=== PATIENT | male | born 1960 | race American Indian/Alaskan Native ===

== ENCOUNTER 2018-03-08 07:58 | Inpatient (IN) | payer OTHER ==
[2018-03-08] MEDS ORDERED: Sodium Chloride 0.9% 500 ML IV STA (08:20)
--- NOTE | 2018-03-08 08:24 | ED PDOC ---
HPI: SOB/CHF/COPD Time Seen by Provider: 03/08/18 08:09 Chief Complaint (Provider): Dyspnea History Per: Patient History/Exam Limitations: no limitations Onset/Duration Of Symptoms: Days (3 weeks) Current Symptoms Are (Timing): Still Present Additional Complaint(s): Pt. with dyspnea ongoing for 3 weeks. No chest pain, leg pain, palpitations, weakness, headaches, dizziness, abd pain, nausea, vomit, numbness, tingles, long distance travel, hormone use. No medical issues. Past Medical History Reviewed: Nursing Documentation, Vital Signs Vital Signs: Last Vital Signs Temp 98.0 F 03/08/18 08:08 Pulse 135 H 03/08/18 08:08 Resp 21 03/08/18 08:08 BP 129/94 H 03/08/18 08:08 Pulse Ox 96 03/08/18 08:08 - Medical History PMH: No Chronic Diseases - Surgical History Surgical History: No Surg Hx - Family History Family History: States: Unknown Family Hx - Social History Alcohol: None Drugs: Denies - Allergies Allergies/Adverse Reactions: Allergies Allergy/AdvReac Type Severity Reaction Status Date / Time No Known Allergies Allergy Verified 03/08/18 08:19 Review of Systems ROS Statement: Except As Marked, All Systems Reviewed And Found Negative Respiratory: Positive for: Shortness of Breath Physical Exam - Reviewed Nursing Documentation Reviewed: Yes Vital Signs Reviewed: Yes - Physical Exam Appears: Positive for: Uncomfortable Head Exam: Positive for: ATRAUMATIC, NORMAL INSPECTION, NORMOCEPHALIC Skin: Positive for: Normal Color, Warm, DRY Eye Exam: Positive for: EOMI, Normal appearance, PERRL ENT: Positive for: Normal ENT Inspection Neck: Positive for: Normal, Painless ROM Cardiovascular/Chest: Positive for: Regular Rate, Rhythm Respiratory: Positive for: CNT, Normal Breath Sounds Gastrointestinal/Abdominal: Positive for: Normal Exam, Soft. Negative for: Tenderness Back: Positive for: Normal Inspection. Negative for: L CVA Tenderness, R CVA Tenderness Extremity: Positive for: Normal ROM. 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 Negative for: Motor/Sensory Deficits - Laboratory Results Result Diagrams: 03/08/18 08:43 03/08/18 08:43 Interpretation Of Abn Labs: probnp 1600 - ECG ECG: Positive for: Interpreted By Me, Viewed By Me ECG Rhythm: Positive for: Atrial Fibrillation (159) O2 Sat by Pulse Oximetry: 96 Pulse Ox Interpretation: Normal - Radiology X-Ray: Read By Radiologist X-Ray Interpretation: Cardiomegaly - Progress ED Course And Treament: 857: Stable. HR not reduced by 10mg cardizem. Will give 15mg considering pt. weight. 908: Pt. HR came down to 140. Will put on a cardizem drip. 920: Spoke with Dr. Morales who wants to continue drip and add metoprolol 5mg IV push x1 if needed. 1022: Stable. AAOx3. will hold ASA as will be giving pt. lovenox. Has mild chf, will be getting lasix. 1031: Spoke with Dr. Hale who will admit. Spoke with Dr. Saeed who will admit ICU. Continue current drip. - Critical Care Total Time (In Min): 30 Documented Critical Care: Time excludes all time spent performint seperately billable procedures Disposition - Clinical Impression Clinical Impression: CHF (congestive heart failure), New onset a-fib - Patient ED Disposition Is Patient to be Admitted: Yes Counseled Patient/Family Regarding: Studies Performed, Diagnosis - Disposition Disposition Time: 10:35 Condition: FAIR - Pt Status Changed To: Hospital Disposition Of: Inpatient - Admit Certification Admit to Inpatient:: After my assessment, the patient will require hospitalization for at least two midnights. This is because of the severity of symptoms shown, intensity of services needed, and/or the medical risk in this patient being treated as an outpatient. - POA Present On Arrival: None
[2018-03-08 08:53] LABS: BASO # 0.1 K/uL (0.0-0.2); BASO % 0.7 % (0.0-2.0); EOS # 0.1 K/uL (0.0-0.7); EOS % 1.2 % (0.0-4.0); HEMOGLOBIN 14.1 g/dL (12.0-18.0); LYMPH # 2.2 K/uL (1.0-4.3); LYMPH % 28.1 % (20.0-40.0); MEAN CELL VOLUME 81.5 fl (80.0-94.0); MEAN CORPUSCULAR HEMOGLOBIN 26.7 pg (27.0-31.0); MEAN CORPUSCULAR HGB CONC 32.7 g/dL (33.0-37.0); MEAN PLATELET VOLUME 9.6 fl (7.2-11.7); MONO % 12.4 % (0.0-10.0); NEUT # 4.6 K/uL (1.8-7.0); NEUT % 57.6 % (50.0-75.0); NRBC % 0.1 % (0.0-0.0); RBC 5.29 Mil/uL (4.40-5.90); RED CELL DISTRIBUTION WIDTH 15.2 % (11.5-14.5)
--- NOTE | 2018-03-08 08:55 | RAD ---
Date of service: 03/08/2018 HISTORY: dyspnea COMPARISON: Portable chest 07/07/2011. FINDINGS: LUNGS: Subtle patchy infiltrate may be developing in the right perihilar region with remaining lung rain otherwise clear bilaterally. PLEURA: No significant pleural effusion identified, no pneumothorax apparent. CARDIOVASCULAR: Prominent cardiac silhouette. Potentially technically magnified. No pulmonary vascular congestion. OSSEOUS STRUCTURES: No significant abnormalities. VISUALIZED UPPER ABDOMEN: Normal. OTHER FINDINGS: None. IMPRESSION: Borderline patchy airspace disease developing in the right perihilar region. Clinically correlate further. None otherwise evident. Prominent cardiac silhouette without pulmonary vascular congestion.
[2018-03-08 09:02] LABS: INR 1.1; PROTHROMBIN TIME 12.4 Seconds (9.8-13.1)
[2018-03-08 09:05] LABS: PARTIAL THROMBOPLASTIN TIME 32.2 Seconds (25.6-37.1)
--- NOTE | 2018-03-08 09:07 | CARD ---
APPROVED REPORT Date of service: 03/08/2018 EKG Measurement Heart [id number] <Conclusion> Atrial fibrillation with rapid ventricular response Rightward axis Abnormal ECG
[2018-03-08 09:08] LABS: ALB/GLOB RATIO 1.2 (1.0-2.1); ALBUMIN 3.7 g/dL (3.5-5.0); ALT/SGPT 117 U/L (21-72); AST/SGOT 83 U/L (17-59); BLOOD UREA NITROGEN 17 mg/dl (9-20); GFR NON-AFRICAN AMERICAN > 60
[2018-03-08 09:21] LABS: B-TYPE NATRIURETIC PEPTIDE 1600 pg/ml (0-900)
[2018-03-08] MEDS ORDERED: Enoxaparin 150 mg Syringe SC STA (10:30)
--- NOTE | 2018-03-08 11:44 | CP.PCM.HP ---
History of Present Illness - History of Present Illness History of Present Illness: 59 yo male patient w/o significant PMH presented to the ED c/o dyspnea ongoing for 3 weeks, chest tightness and palpitations meanly at night. He denies any previuos episodes. He states he able to climb up to 3 flight stairs w/o get sob. Otherwise he denies chest pain, leg pain, edema, cough, weakness, headaches, dizziness, abd pain, nausea, vomit, numbness, tingles, recent travels or sick contacts. No medical issues. PMH: denies PSH: appendectomy, IH repair FMH: father from [place], sister <50yo also from [place] Meds: occasional Tylenol for headaches NKDA SH: quit smoke 7 yrs ago, denies etoh or ilicit drugs Present on Admission - Present on Admission Any Indicators Present on Admission: No Review of Systems - Review of Systems All systems: reviewed and no additional remarkable complaints except (HPI) Past Patient History - Past Social History Alcohol: None Drugs: Denies - PSYCHIATRIC Hx Substance Use: No - SURGICAL HISTORY Hx Surgeries: Yes Hx Appendectomy: Yes Other/Comment: HERNIA REPAIR - ANESTHESIA Hx Anesthesia: Yes Hx Anesthesia Reactions: No Hx Malignant Hyperthermia: No Meds Allergies/Adverse Reactions: Allergies Allergy/AdvReac Type Severity Reaction Status Date / Time No Known Allergies Allergy Verified 03/08/18 08:19 Physical Exam - Constitutional Appears: No Acute Distress - Head Exam Head Exam: NORMAL INSPECTION - Eye Exam Eye Exam: EOMI, PERRL - Respiratory Exam Respiratory Exam: Decreased Breath Sounds, Clear to Auscultation Bilateral. absent: Rhonchi, Wheezes - Cardiovascular Exam Cardiovascular Exam: Tachycardia, Irregular Rhythm - GI/Abdominal Exam GI & Abdominal Exam: Soft. absent: Distended, Tenderness - Extremities Exam Extremities exam: Negative for: calf tenderness - Neurological Exam Neurological exam: Alert, CN II-XII Intact, Oriented x3 - Skin Skin Exam: Dry, Warm Results - Vital Signs Recent Vital Signs: Last Vital Signs Temp 98.0 F 03/08/18 08:08 Pulse 130 H 03/08/18 11:14 Resp 18 03/08/18 11:14 BP 135/87 03/08/18 11:14 Pulse Ox 99 03/08/18 11:14 - Labs Result Diagrams: 03/09/18 04:20 03/09/18 04:20 Labs: Laboratory Results - last 24 hr 03/08/18 03/08/18 03/08/18 08:43 08:43 08:43 WBC 8.0 RBC 5.29 Hgb 14.1 Hct 43.1 MCV 81.5 MCH 26.7 L MCHC 32.7 L RDW 15.2 H Plt Count 213 MPV 9.6 Neut % (Auto) 57.6 Lymph % (Auto) 28.1 [place] % (Auto) 12.4 H Eos % (Auto) 1.2 Baso % (Auto) 0.7 Neut # (Auto) 4.6 Lymph # (Auto) 2.2 [place] # (Auto) 1.0 H Eos # (Auto) 0.1 Baso # (Auto) 0.1 PT 12.4 INR 1.1 APTT 32.2 Sodium 139 Potassium 4.2 Chloride 111 H Carbon Dioxide 22 Anion Gap 10 BUN 17 Creatinine 1.2 Est GFR ( Amer) > 60 Est GFR (Non-Af Amer) > 60 Random Glucose 101 Calcium 9.0 Magnesium 2.1 Total Bilirubin 1.0 AST 83 H ALT 117 H Alkaline Phosphatase 60 Troponin I 0.0210 NT-Pro-B Natriuret Pep 1600 H Total Protein 6.8 Albumin 3.7 Globulin 3.2 Albumin/Globulin Ratio 1.2 TSH 3rd Generation 1.54 Assessment & Plan - Assessment and Plan (Free Text) Assessment: 59 yo male patient w/o significant PMH admitted for AFib of new onset with RVR for further eval and treatment Plan: - denies chest pain - EKG: afib with RVR - CXR: no active lung disease - trending troponins negatives - Echo official report pending - on cardiazem drip, stopped due to BP drop - Cardiology consulted, recommendations appreciated - Plan for Cath and ANDRE tomorrow with Dr. Morales at [facility]. - Eliquis held and NPO after midnight. - continue rest of management as ordered Case seen and examined with Dr Hale.
[2018-03-08] MEDS ORDERED: Influenza Vaccine (5 YR UP)/PF 60 MCG/0.5 ML SYR IM ONE (13:16)
[2018-03-08] MEDS ORDERED: Pneumococcal 23-Valent Vaccine IM ONE (13:16)
[2018-03-08] MEDS ORDERED: Magnesium Sulfate 2 gm/50 ml 2 GM/50 ML BAG IVPB ONE (16:18)
--- NOTE | 2018-03-08 16:18 | CP.PCM.CON ---
History of Present Illness - History of Present Illness History of Present Illness: 58 y/o male presents with CC of Orthopnea x 3 weeks. Pt also admits to mild SAMAYOA. No cp, palp, Lh, dizziness, syncope. Pt states that he has mild fatigue. upon presentation he is noted to have new onset rapid afib. Denies any etoh or drug use, denies recent travel, le pain, or hx of cardiac disease. Pt admits to KOBY for many years, not using cpap. There is a family hx of arrythmias (mother and brother). exact diagnosis is unknown. Review of Systems - Constitutional Constitutional: As Per HPI, Fatigue. absent: Anorexia, Chills, Daytime Sleepiness, Excessive Sweating, Fever, Frequent Falls, Headache, Increased Appetite, Lethargy, Malaise, Night Sweats, Snoring, Sleep Apnea, Weight Gain, Weight Loss, Weakness, Other - EENT Eyes: As Per HPI. absent: Blind Spots, Blurred Vision, Change in Vision, Decreased Night Vision, Diplopia, Discharge, Dry Eye, Exophthalmos, Floaters, Irritation, Itchy Eyes, Loss of Peripheral Vision, Pain, Photophobia, Requires Corrective Lenses, Sees Flashes, Spots in Vision, Tunnel Vision, Other Visual Disturbances, Loss of Vision, Other Ears: As Per HPI. absent: Decreased Hearing, Ear Discharge, Ear Pain, Tinnitus, Abnormal Hearing, Disequilibrium, Dizziness, Other Nose/Mouth/Throat: As Per HPI. absent: Epistaxis, Nasal Congestion, Nasal Discharge, Nasal Obstruction, Nasal Trauma, Nose Pain, Post Nasal Drip, Sinus Pain, Sinus Pressure, Bleeding Gums, Change in Voice, Dental Pain, Dry Mouth, Dysphagia, Halitosis, Hoarsness, Lip Swelling, Mouth Lesions, Mouth Pain, Odynophagia, Sore Throat, Throat Swelling, Tongue Swelling, Facial Pain, Neck Pain, Neck Mass, Other - Cardiovascular Cardiovascular: As Per HPI, Edema, Irregular Heart Rhythm. absent: Acrocyanosis, Chest Pain, Chest Pain at Rest, Chest Pain with Activity, Claudication, Diaphoresis, Dyspnea, Dyspnea on Exertion, Pain Radiating to Arm/Neck/Jaw, Leg Edema, Leg Ulcers, Lightheadedness, Orthopnea, Palpitations, Paroxysmal Nocturnal Dyspnea, Pedal Edema, Radiating Pain, Rapid Heart Rate, Slow Heart Rate, Syncope, Other - Respiratory Respiratory: As Per HPI. absent: Cough, Dyspnea, Hemoptysis, Dyspnea on Exertion, Wheezing, Snoring, Stridor, Pain on Inspiration, Chest Congestion, Excessive Mucous Production, Change in Mucous Color, Pain with Coughing, Other - Gastrointestinal Gastrointestinal: As Per HPI. absent: Abdominal Pain, Belching, Bloating, Change in Bowel Habits, Change in Stool Character, Coffee Ground Emesis, Con stipation, Cramping, Diarrhea, Dyspepsia, Dysphagia, Early Satiety, Excessive Flatus, Fecal Incontinence, Heartburn, Hematemesis, Hematochezia, Loose Stools, Melena, Nausea, Odynophagia, Temesmus, Vomiting, Other - Genitourinary Genitourinary: As Per HPI. absent: Change in Urinary Stream, Difficulty Urinating, Dysuria, Flank Pain, Hematuria, Pyuria, Nocturia, Urinary Incontinence, Urinary Frequency, Urinary Hesitance, Urinary Urgency, Voiding Freq/Small Amts, Freq UTI, Hx Renal/Bladder Calculi, Hx /Renal Surgery, Bladder Distension, Other - Reproductive: Male Reproductive:Male: As Per HPI - Musculoskeletal Musculoskeletal: As Per HPI. absent: Abnormal Gait, Arthralgias, Atrophy, Back Pain, Deformity, Joint Swelling, Limited Range of Motion, Loss of Height, Muscle Cramps, Muscle Weakness, Myalgias, Neck Pain, Numbness, Radiating Pain into Limb, Stiffness, Tingling, Other - Integumentary Integumentary: As Per HPI. absent: Acne, Alopecia, Bleeding Lesions, Change in Hair, Change in Nails, Change in Pigmentation, Changing Lesions, Dry Skin, Erythema, Furuncle, Hirsutism, Lesions, New Lesions, Non-Healing Lesions, Photosensitivity, Pruritus, Rash, Skin Pain, Skin Ulcer, Sores, Striae, Swelling, Unusual Bruising, Wounds, Jaundice, Other - Neurological Neurological: As Per HPI. absent: Abnormal Gait, Abnormal Hearing, Abnormal Movements, Abnormal Speech, Behavioral Changes, Burning Sensations, Confusion, Convulsions, Disequilibrium, Dizziness, Numbness, Focal Weakness, Frequent Fal ls, Headaches, Lack of Coordination, Loss of Vision, Memory Loss, Paresthesias, Radicular Pain, Restless Legs, Sensory Deficit, Syncope, Tingling, Tremor, Vertigo, Weakness, Other Visual Disturbances, Other - Psychiatric Psychiatric: As Per HPI. absent: Abnormal Sleep Pattern, Anhedonia, Anxiety, Auditory Hallucinations, Behavioral Changes, Change in Appetite, Change in Libido, Confusion, Depression, Difficulty Concentrating, Hallucinations, Homicidal Ideation, Hopelessness, Irritability, Memory Loss, Mood Swings, Panic Attacks, Paranoia, Suicidal Ideation, Visual Hallucinations, Tactile Hallucinations, Other - Endocrine Endocrine: As Per HPI. absent: Change in Body Appearance, Change in Libido, Cold Intolorance, Deepening of Voice, Excessive Sweating, Fatigue, Flushing, Heat Intolorance, Increase in Ring/Shoe/Hat Size, Palpitations, Polydipsia, Polyphagia, Polyuria, Other - Hematologic/Lymphatic Hematologic: As Per HPI. absent: Easy Bleeding, Easy Bruising, Lymphadenopathy, Other Past Patient History - Past Medical History & Family History Past Medical History?: No - Past Social History Smoking Status: Former Smoker - CARDIAC Hx Cardiac Disorders: No Hx Angina: No Hx Atrial Fibrillation: Yes (new onset) Hx Cardia Arrhythmia: No Hx Circulatory Problems: No Hx Congestive Heart Failure: No Hx Heart Attack: No Hx Heart Murmur: No Hx Heart Transplant: No Hx Hypercholesterolemia: Yes (corrected) Hx Hypertension: No Hx Hypotension: No Hx Internal Defibrillator: No Hx Mitral Valve Prolapse: No Hx Pacemaker: No Hx Peripheral Edema: No Hx Peripheral Vascular Disease: No - PULMONARY Hx Respiratory Disorders: No Hx Asthma: No Hx Bronchitis: No Hx Chronic Obstructive Pulmonary Disease (COPD): No Hx Emphysema: No Hx Lung Cancer: No Hx Pneumonia: No Hx Pulmonary Edema: No Hx Pulmonary Embolism: No Hx Respiratory Aspiration: No Hx Respiratory Tract Infection: No Hx Sleep Apnea: No Hx Tuberculosis: No - NEUROLOGICAL Hx Neurological Disorder: No Hx Alzheimer's Disease: No HX Cerebrovascular Accident: No Hx Dementia: No Hx Dizziness: No Hx Meningitis: No Hx Migraine: No Hx Multiple Sclerosis: No Hx Paralysis: No Hx Parkinson's Disease: No Hx Seizures: No Hx Syncope: No Hx Transient Ischemic Attacks (TIA): No Hx Vertigo: No - HEENT Hx HEENT Problems: Yes Hx Blind: No Hx Cataracts: No Hx Deafness: No Hx Difficulty Chewing: No Hx Epistaxis: No Hx Glaucoma: No Hx Macular Degeneration: No Hx Sinusitis: No - RENAL Hx Chronic Kidney Disease: No Hx Dialysis: No Hx Kidney Stones: No Hx Neurogenic Bladder: No Hx Pyelonephritis: No Hx Renal (Kidney) Cancer: No Hx Renal Failure: No - ENDOCRINE/METABOLIC Hx Endocrine Disorders: No Hx Adrenal Cancer: No Hx Diabetes Insipidus: No Hx Diabetes Mellitus Type 1: No Hx Diabetes Mellitus Type 2: No Hx Hyperthyroidism: No Hx Hypothyroidism: No - HEMATOLOGICAL/ONCOLOGICAL Hx Blood Disorders: No Hx AIDS: No Hx Anemia: No Hx Blood Transfusions: No Hx Blood Transfusion Reaction: No Hx Bruising: No Hx Cancer: No Hx Chemotherapy: No Hx Cirrhosis: No Hx Gum Bleeding: No Hx Hemophilia: No Hx Hepatitis A: No Hx Hepatitis B: No Hx Hepatitis C: No Hx Human Immunodeficiency Virus (HIV): No Hx Leukemia: No Hx Metastesis: No Hx Shingles: No Hx Sickle Cell Disease: No Hx Unexplained Bleeding: No Hx von Willebrand's Disease: No - INTEGUMENTARY Hx Dermatological Problems: No Hx Basil Cell: No Hx Kramer: No Hx Cellulitis: No Hx Eczema: No Hx Melanoma: No Hx Psoriasis: No Hx Squamous Cell: No - MUSCULOSKELETAL/RHEUMATOLOGICAL Hx Musculoskeletal Disorders: Yes Hx Arthritis: No Hx Back Pain: No Hx Degenerative Joint Disease: No Hx Falls: No Hx Fractures: No Hx Gout: No Hx Herniated Disk: No Hx Myasthenia Gravis: No Hx Osteoarthritis: No Hx Osteomyelitis: No Hx Osteoporosis: No Hx Rhabdomyolysis: No Hx Rheumatoid Arthritis: No Hx Spinal Stenosis: No Hx Unsteady Gait: No Other/Comment: broke all fingers - GASTROINTESTINAL Hx Gastrointestinal Disorders: No Hx Bowel Surgery: No Hx Clostridium Difficile: No Hx Colitis: No Hx Colostomy: No Hx Constipation: No Hx Crohn's Disease: No Hx Diarrhea: No Hx Diverticulitis: No Hx Esophageal Varices: No Hx Fatty Liver Disease: No Hx Gall Bladder Disease: No Hx Gastritis: No Hx Gastroesophageal Reflux: No Hx Hemorrhoids: No Hx Ileostomy: No Hx Irritable Bowel: No Hx Liver Failure: No Hx Nausea: No Hx Pancreatitis: No HX Swallowing Problems: No Hx Ulcer: No Hx Vomiting: No - GENITOURINARY/GYNECOLOGICAL Hx Genitourinary Disorders: No Hx Bladder Cancer: No Hx Bladder Stone: No Hx Hematuria: No Hx Incontinence: No Hx Prostate Cancer: No Hx Prostate Problems: No Hx Reproductive Disorders: No Hx Sexually Transmitted Disorders: No Hx Urinary Tract Infection: No - PSYCHIATRIC Hx Psychophysiologic Disorder: No Hx Anxiety: No Hx Bipolar Disorder: No Hx Depression: No Hx Emotional Abuse: No Hx Hallucinations: No Hx Panic Symptoms: No Hx Paranoia: No Hx Post Traumatic Stress Disorder: No Hx Psychosis: No Hx Physical Abuse: No Hx Schizophrenia: No Hx Sexual Abuse: No Hx Substance Use: No Other/Comment: former smoker - SURGICAL HISTORY Hx Surgeries: Yes Hx Abdominal Aortic Aneurysm Repair: No Hx Amputation: No Hx Angiogram: No Hx Angioplasty: No Hx Appendectomy: Yes Hx Arteriovenous Shunt: No Hx Arthroscopy: No Hx Bile Duct Stent: No Hx Breast Biopsy: No Hx Cataract Extraction: No Hx Cardiac Catheterization: No Hx Carotid Endarterectomy: No Hx Section: No Hx Cholecystectomy: No Hx Coronary Artery Bypass Graft: No Hx Coronary Stent: No Hx Dilation and Curettage: No Hx Eye Surgery: No Hx Femoral-Popliteal Bypass Graft: No Hx Gastric Bypass Surgery: No Hx Herniorrhaphy: Yes Hx Hysterectomy: No Hx Joint Replacement: No Hx Kidney Transplant: No Hx Liver Transplant: No Hx Mastectomy: No Hx Musculoskeletal Surgery: No Hx Open Heart Surgery: No Hx Open Reduction Internal Fixation: No Hx Orthopedic Surgery: No Hx Parathyroidectomy: No Hx Penile Implant: No Hx Pulmonary Surgery: No Hx Splenectomy: No Hx Thyroidectomy: No Hx Tonsillectomy: No Hx Tubal Ligation: No Hx Valve Replacement: No Hx Vascular Surgery: No Hx Vascular Access Device: No Other/Comment: HERNIA REPAIR, gastric ban - ANESTHESIA Hx Anesthesia: Yes Hx Anesthesia Reactions: No Hx Malignant Hyperthermia: No Has any member of the family had a problem w/ anesthesia?: No Meds Allergies/Adverse Reactions: Allergies Allergy/AdvReac Type Severity Reaction Status Date / Time No Known Allergies Allergy Verified 03/08/18 08:19 - Medications Medications: Current Medications Diltiazem HCl 125 mg/ Sodium (Chloride) 125 mls @ 10 mls/hr IV .[id number]; Protocol Stop: 03/08/18 21:35 Last Admin: 03/08/18 13:00 Dose: 12.5 mg/hr, 12.5 mls/hr Physical Exam - Constitutional Appears: Non-toxic - Head Exam Head Exam: ATRAUMATIC, NORMAL INSPECTION, NORMOCEPHALIC - Eye Exam Eye Exam: EOMI, Normal appearance, PERRL. absent: Conjunctival injection, Nystagmus, Periorbital swelling, Periorbital tenderness, Scleral icterus Pupil Exam: NORMAL ACCOMODATION, PERRL. absent: Fixed, Irregular, Miosis, Mydriatic, Unequal - ENT Exam ENT Exam: Mucous Membranes Moist, Normal Exam. absent: Mucous Membranes Dry, Normal External Ear Exam, Normal Oropharynx, TM's Normal Bilaterally - Neck Exam Neck exam: Positive for: Normal Inspection. Negative for: Full Rom, Lymphadenopathy, Meningismus, Tenderness, Thyromegaly - Respiratory Exam Respiratory Exam: Clear to Auscultation Bilateral, NORMAL BREATHING PATTERN. absent: Accessory Muscle Use, Chest Wall Tenderness, Decreased Breath Sounds, Prolonged Expiratory Phase, Rales, Rhonchi, Wheezes, Respiratory Distress, Stridor - Cardiovascular Exam Cardiovascular Exam: Tachycardia, Irregular Rhythm, +S1, +S2, Systolic Murmur. absent: Bradycardia, Clicks, Diastolic murmur, Gallop, REGULAR RHYTHM, JVD, RRR, Rubs, +S4 - GI/Abdominal Exam GI & Abdominal Exam: Normal Bowel Sounds, Soft. absent: Bruit, Diminished Bowel Sounds, Distended, Firm, Guarding, Hernia, Hyperactive Bowel Sounds, Hypoactive Bowel Sounds, Mass, Organomegaly, Pulsatile Mass, Rebound, Rigid, Tenderness - Extremities Exam Additional comments: 2+ edema - Back Exam Back exam: NORMAL INSPECTION. absent: CVA tenderness (L), CVA tenderness (R), FULL ROM, muscle spasm, paraspinal tenderness, rash noted, tenderness, vertebral tenderness - Neurological Exam Neurological exam: Alert, CN II-XII Intact, Oriented x3, Reflexes Normal - Psychiatric Exam Psychiatric exam: Normal Affect, Normal Mood - Skin Skin Exam: Dry, Intact, Normal Color, Warm Results - Vital Signs Recent Vital Signs: Last Vital Signs Temp 98.8 F 03/08/18 16:00 Pulse 132 H 03/08/18 16:00 Resp 23 03/08/18 16:00 BP 198/47 H 03/08/18 16:00 Pulse Ox 100 03/08/18 16:00 - Labs Result Diagrams: 03/09/18 04:20 03/09/18 04:20 Labs: Laboratory Results - last 24 hr 03/08/18 03/08/18 03/08/18 08:43 08:43 08:43 WBC 8.0 RBC 5.29 Hgb 14.1 Hct 43.1 MCV 81.5 MCH 26.7 L MCHC 32.7 L RDW 15.2 H Plt Count 213 MPV 9.6 Neut % (Auto) 57.6 Lymph % (Auto) 28.1 [place] % (Auto) 12.4 H Eos % (Auto) 1.2 Baso % (Auto) 0.7 Neut # (Auto) 4.6 Lymph # (Auto) 2.2 [place] # (Auto) 1.0 H Eos # (Auto) 0.1 Baso # (Auto) 0.1 PT 12.4 INR 1.1 APTT 32.2 Sodium 139 Potassium 4.2 Chloride 111 H Carbon Dioxide 22 Anion Gap 10 BUN 17 Creatinine 1.2 Est GFR ( Amer) > 60 Est GFR (Non-Af Amer) > 60 Random Glucose 101 Calcium 9.0 Magnesium 2.1 Total Bilirubin 1.0 AST 83 H ALT 117 H Alkaline Phosphatase 60 Troponin I 0.0210 NT-Pro-B Natriuret Pep 1600 H Total Protein 6.8 Albumin 3.7 Globulin 3.2 Albumin/Globulin Ratio 1.2 TSH 3rd Generation 1.54 03/08/18 15:35 WBC RBC Hgb Hct MCV MCH MCHC RDW Plt Count MPV Neut % (Auto) Lymph % (Auto) [place] % (Auto) Eos % (Auto) Baso % (Auto) Neut # (Auto) Lymph # (Auto) [place] # (Auto) Eos # (Auto) Baso # (Auto) PT INR APTT Sodium Potassium Chloride Carbon Dioxide Anion Gap BUN Creatinine Est GFR ( Amer) Est GFR (Non-Af Amer) Random Glucose Calcium Magnesium Total Bilirubin AST ALT Alkaline Phosphatase Troponin I 0.0180 NT-Pro-B Natriuret Pep Total Protein Albumin Globulin Albumin/Globulin Ratio TSH 3rd Generation Assessment & Plan (1) CHF (congestive heart failure) Status: Acute (2) New onset a-fib Status: Acute - Assessment and Plan (Free Text) Plan: anticoagulation changed to eliquis cardizem iv and metoprolol for rate control echo ordered continue diuretics and icu monitoring
[2018-03-08] MEDS ORDERED: Metoprolol 1 mg/ml Inj IVP SCH (17:07)
--- NOTE | 2018-03-08 17:18 | CP.CCUPN ---
Addendum entered and electronically signed by Emelina Flood MD 03/08/18 17:50: Discussed case with Student Dean, Dr. Morales. Will start pt on Cardizem 20mg/hr and Lopressor 5mg q6 in light of persistent tachycardia and elevated blood pressures. Will also start diuresing patient w/ Lasix IV 40mg BID daily. Eliquis for anticoagulation. Original Note: <Emelina Flood - Last Filed: 03/08/18 17:50> CCU Subjective - Physician Review Subjective (Free Text): Pt is a 58 y/o male presenting with 3 wk history of worsening SOB found on presentation to be in Atrial Fibrillation with RVR and Acute CHF exacerbation. ED events reviewed: -HR 180 on presentation -EKG Afibb w/ RVR -Troponin x1 negative -ProBMP 1600 -S/P Cardizem 10mg and 15mg -Cardizem drip started -S/P Lasix 40mg IV Overnight events: -Tachycardic ranging from 130-150 -Cardizem drip titrated to 10mg/hr Seen and examined this morning. Family at the bedside. Denies CP, palpitations, SOB, cough. States he is feeling better. Endorses night time awakenings with acute SOB. 03/08/18 15:08 CCU Objective - Vital Signs / Intake & Output Vital Signs (Last 4 hours): Vital Signs Temp Pulse Resp BP Pulse Ox 03/08/18 16:00 98.8 F 132 H 23 198/47 H 100 03/08/18 15:00 145 H 24 119/81 100 03/08/18 14:00 128 H 23 130/92 H 100 03/08/18 13:17 98.1 F 03/08/18 13:09 145 H 19 159/100 H 99 Intake and Output (Last 8hrs): Intake & Output 03/08/18 03/08/18 03/08/18 06:59 14:59 22:59 Output Total 1880 Balance -1880 Weight 382 lb 4.8 oz Output: Urine 1880 Urine, Voided 980 - Physical Exam Head: Positive for: Atraumatic, Normocephalic Pupils: Positive for: PERRL Conjunctiva: Positive for: Normal Mouth: Positive for: Moist Mucous Membranes Pharnyx: Positive for: Normal Respiratory/Chest: Positive for: Clear to Auscultation. Negative for: Wheezes, Rales, Rhonchi, Tachypneic Cardiovascular: Positive for: Irregular Rhythm, Tachycardic. Negative for: Murmurs Abdomen: Positive for: Normal Bowel Sounds. Negative for: Tenderness, Distention Upper Extremity: Positive for: Capillary Refill < 2s. Negative for: Edema Lower Extremity: Positive for: Capillary Refill < 2 s. Negative for: Edema, CALF TENDERNESS, Teodora's Sign, Temperature Abnormalties Neurological: Positive for: Speech Normal Skin: Positive for: Normal Color Psychiatric: Positive for: Alert, Oriented x 3 - Medications Active Medications: Active Medications Generic Name Dose Route Start Last Admin Trade Name Freq PRN Reason Stop Dose Admin Apixaban 5 mg 03/09/18 09:00 Eliquis PO Q12 SARAI Protocol Furosemide 40 mg 03/08/18 17:00 Lasix IVP BID SARAI Diltiazem HCl 125 mg/ Sodium 125 mls @ 10 mls/hr 03/08/18 09:06 03/08/18 13:00 Chloride IV 03/08/18 21:35 12.5 mg/hr .[id number] ONE 12.5 mls/hr Administration Protocol 10 MG/HR Magnesium Sulfate 2 gm in 50 mls @ 50 mls/hr 03/08/18 16:18 Magnesium Sulfate 2 Gm/50 Ml Water IVPB 03/08/18 17:17 ONCE ONE 2 GM/HR - Patient Studies Lab Studies: Lab Studies 03/08/18 03/08/18 03/08/18 Range/Units 15:35 08:43 08:43 WBC 8.0 (4.8-10.8) K/uL RBC 5.29 (4.40-5.90) Mil/uL Hgb 14.1 (12.0-18.0) g/dL Hct 43.1 (35.0-51.0) % MCV 81.5 (80.0-94.0) fl MCH 26.7 L (27.0-31.0) pg MCHC 32.7 L (33.0-37.0) g/dL RDW 15.2 H (11.5-14.5) % Plt Count 213 (130-400) K/uL MPV 9.6 (7.2-11.7) fl Neut % (Auto) 57.6 (50.0-75.0) % Lymph % (Auto) 28.1 (20.0-40.0) % Gove % (Auto) 12.4 H (0.0-10.0) % Eos % (Auto) 1.2 (0.0-4.0) % Baso % (Auto) 0.7 (0.0-2.0) % Neut # (Auto) 4.6 (1.8-7.0) K/uL Lymph # (Auto) 2.2 (1.0-4.3) K/uL Gove # (Auto) 1.0 H (0.0-0.8) K/uL Eos # (Auto) 0.1 (0.0-0.7) K/uL Baso # (Auto) 0.1 (0.0-0.2) K/uL PT 12.4 (9.8-13.1) Seconds INR 1.1 APTT 32.2 (25.6-37.1) Seconds Sodium (132-148) mmol/l Potassium (3.6-5.0) MMOL/L Chloride (98-107) mmol/L Carbon Dioxide (22-30) mmol/L Anion Gap (10-20) BUN (9-20) mg/dl Creatinine (0.8-1.5) mg/dl Est GFR ( Amer) Est GFR (Non-Af Amer) Random Glucose (75-110) mg/dL Calcium (8.4-10.2) mg/dL Magnesium (1.6-2.3) MG/DL Total Bilirubin (0.2-1.3) mg/dl AST (17-59) U/L ALT (21-72) U/L Alkaline Phosphatase (38-126) U/L Troponin I 0.0180 (0.00-0.120) ng/mL NT-Pro-B Natriuret Pep (0-900) pg/ml Total Protein (6.3-8.2) G/DL Albumin (3.5-5.0) g/dL Globulin (2.2-3.9) gm/dL Albumin/Globulin Ratio (1.0-2.1) TSH 3rd Generation (0.46-4.68) mIU/ML 03/08/18 Range/Units 08:43 WBC (4.8-10.8) K/uL RBC (4.40-5.90) Mil/uL Hgb (12.0-18.0) g/dL Hct (35.0-51.0) % MCV (80.0-94.0) fl MCH (27.0-31.0) pg MCHC (33.0-37.0) g/dL RDW (11.5-14.5) % Plt Count (130-400) K/uL MPV (7.2-11.7) fl Neut % (Auto) (50.0-75.0) % Lymph % (Auto) (20.0-40.0) % Gove % (Auto) (0.0-10.0) % Eos % (Auto) (0.0-4.0) % Baso % (Auto) (0.0-2.0) % Neut # (Auto) (1.8-7.0) K/uL Lymph # (Auto) (1.0-4.3) K/uL Gove # (Auto) (0.0-0.8) K/uL Eos # (Auto) (0.0-0.7) K/uL Baso # (Auto) (0.0-0.2) K/uL PT (9.8-13.1) Seconds INR APTT (25.6-37.1) Seconds Sodium 139 (132-148) mmol/l Potassium 4.2 (3.6-5.0) MMOL/L Chloride 111 H (98-107) mmol/L Carbon Dioxide 22 (22-30) mmol/L Anion Gap 10 (10-20) BUN 17 (9-20) mg/dl Creatinine 1.2 (0.8-1.5) mg/dl Est GFR ( Amer) > 60 Est GFR (Non-Af Amer) > 60 Random Glucose 101 (75-110) mg/dL Calcium 9.0 (8.4-10.2) mg/dL Magnesium 2.1 (1.6-2.3) MG/DL Total Bilirubin 1.0 (0.2-1.3) mg/dl AST 83 H (17-59) U/L ALT 117 H (21-72) U/L Alkaline Phosphatase 60 (38-126) U/L Troponin I 0.0210 (0.00-0.120) ng/mL NT-Pro-B Natriuret Pep 1600 H (0-900) pg/ml Total Protein 6.8 (6.3-8.2) G/DL Albumin 3.7 (3.5-5.0) g/dL Globulin 3.2 (2.2-3.9) gm/dL Albumin/Globulin Ratio 1.2 (1.0-2.1) TSH 3rd Generation 1.54 (0.46-4.68) mIU/ML Laboratory Results - last 24 hr 03/08/18 03/08/18 03/08/18 08:43 08:43 08:43 WBC 8.0 RBC 5.29 Hgb 14.1 Hct 43.1 MCV 81.5 MCH 26.7 L MCHC 32.7 L RDW 15.2 H Plt Count 213 MPV 9.6 Neut % (Auto) 57.6 Lymph % (Auto) 28.1 Gove % (Auto) 12.4 H Eos % (Auto) 1.2 Baso % (Auto) 0.7 Neut # (Auto) 4.6 Lymph # (Auto) 2.2 Gove # (Auto) 1.0 H Eos # (Auto) 0.1 Baso # (Auto) 0.1 PT 12.4 INR 1.1 APTT 32.2 Sodium 139 Potassium 4.2 Chloride 111 H Carbon Dioxide 22 Anion Gap 10 BUN 17 Creatinine 1.2 Est GFR ( Amer) > 60 Est GFR (Non-Af Amer) > 60 Random Glucose 101 Calcium 9.0 Magnesium 2.1 Total Bilirubin 1.0 AST 83 H ALT 117 H Alkaline Phosphatase 60 Troponin I 0.0210 NT-Pro-B Natriuret Pep 1600 H Total Protein 6.8 Albumin 3.7 Globulin 3.2 Albumin/Globulin Ratio 1.2 TSH 3rd Generation 1.54 03/08/18 15:35 WBC RBC Hgb Hct MCV MCH MCHC RDW Plt Count MPV Neut % (Auto) Lymph % (Auto) Gove % (Auto) Eos % (Auto) Baso % (Auto) Neut # (Auto) Lymph # (Auto) Gove # (Auto) Eos # (Auto) Baso # (Auto) PT INR APTT Sodium Potassium Chloride Carbon Dioxide Anion Gap BUN Creatinine Est GFR ( Amer) Est GFR (Non-Af Amer) Random Glucose Calcium Magnesium Total Bilirubin AST ALT Alkaline Phosphatase Troponin I 0.0180 NT-Pro-B Natriuret Pep Total Protein Albumin Globulin Albumin/Globulin Ratio TSH 3rd Generation EKG/Cardiology Studies: Cardiology / EKG Studies 03/08/18 08:20 ELECTROCARDIOGRAM Stat Comment: Mode Of Transportation: Reason For Exam: needed Review of Systems - Constitutional Constitutional: absent: Chills, Sweats - Cardiovascular Cardiovascular: absent: Chest Pain, Diaphoresis, Dyspnea, Edema, Lightheadedness - Respiratory Respiratory: Snoring. absent: Cough, Hemoptysis, Chest Congestion, Excessive Mucous Production - Gastrointestinal Gastrointestinal: absent: Abdominal Pain, Diarrhea, Vomiting - Genitourinary Genitourinary: absent: Dysuria - Musculoskeletal Musculoskeletal: absent: Numbness, Tingling Critical Care Progress Note - Nutrition Nutrition: Nutrition Category Date Time Status Heart Healthy Diet [DIET] Diets 03/08/18 Lunch Active Assessment/Plan - Assessment and Plan (Free Text) Assessment: Pt is a 58 y/o male presenting with 3 wk history of worsening SOB found on presentation to be in Atrial Fibrillation with RVR and Acute CHF exacerbation. #SOB -resolved -Etiology likely multifactorial. May be 2/2 to decompensated CHF vs Arrythmia #Atrial Fibrillation w/ RVR -HR improved but still not sinus rhythm. -C/W Cardizem Drip -Cardiology Consulted: Dr. Morales -Will consider adding Beta blockade for further rate and rhythm control #CHF Exacerbation, acute -Clinically fluid overloaded- Pedal edema - Cxray- notable for enlarged cardiac silhouette - ProBNP 1600 - Pt denies prior hx of CHF, though on history has symptoms suggestive of PND - Echo ordered Discussed case with Dr. Beltran <Ori Beltran - Last Filed: 03/08/18 18:36> CCU Objective - Vital Signs / Intake & Output Vital Signs (Last 4 hours): Vital Signs Temp Pulse Resp BP Pulse Ox 03/08/18 17:31 140 H 139/70 03/08/18 16:00 98.8 F 132 H 23 198/47 H 100 03/08/18 15:00 145 H 24 119/81 100 Intake and Output (Last 8hrs): Intake & Output 03/08/18 03/08/18 03/08/18 06:59 14:59 22:59 Intake Total 0 Output Total 1880 Balance -1880 Weight 382 lb 4.8 oz 383 lb Intake: IV 0 Output: Urine 1880 Urine, Voided 980 - Medications Active Medications: Active Medications Generic Name Dose Route Start Last Admin Trade Name Freq PRN Reason Stop Dose Admin Apixaban 5 mg 03/09/18 09:00 Eliquis PO Q12 [facility] Protocol Furosemide 40 mg 03/08/18 17:00 03/08/18 17:31 Lasix IVP 40 mg BID SARAI Administration Metoprolol Tartrate 5 mg 03/08/18 22:00 03/08/18 17:31 Lopressor IVP 5 mg Q6 SARAI Administration - Patient Studies Lab Studies: Lab Studies 03/08/18 03/08/18 03/08/18 Range/Units 15:35 08:43 08:43 WBC 8.0 (4.8-10.8) K/uL RBC 5.29 (4.40-5.90) Mil/uL Hgb 14.1 (12.0-18.0) g/dL Hct 43.1 (35.0-51.0) % MCV 81.5 (80.0-94.0) fl MCH 26.7 L (27.0-31.0) pg MCHC 32.7 L (33.0-37.0) g/dL RDW 15.2 H (11.5-14.5) % Plt Count 213 (130-400) K/uL MPV 9.6 (7.2-11.7) fl Neut % (Auto) 57.6 (50.0-75.0) % Lymph % (Auto) 28.1 (20.0-40.0) % Gove % (Auto) 12.4 H (0.0-10.0) % Eos % (Auto) 1.2 (0.0-4.0) % Baso % (Auto) 0.7 (0.0-2.0) % Neut # (Auto) 4.6 (1.8-7.0) K/uL Lymph # (Auto) 2.2 (1.0-4.3) K/uL Gove # (Auto) 1.0 H (0.0-0.8) K/uL Eos # (Auto) 0.1 (0.0-0.7) K/uL Baso # (Auto) 0.1 (0.0-0.2) K/uL PT 12.4 (9.8-13.1) Seconds INR 1.1 APTT 32.2 (25.6-37.1) Seconds Sodium (132-148) mmol/l Potassium (3.6-5.0) MMOL/L Chloride (98-107) mmol/L Carbon Dioxide (22-30) mmol/L Anion Gap (10-20) BUN (9-20) mg/dl Creatinine (0.8-1.5) mg/dl Est GFR ( Amer) Est GFR (Non-Af Amer) Random Glucose (75-110) mg/dL Calcium (8.4-10.2) mg/dL Magnesium (1.6-2.3) MG/DL Total Bilirubin (0.2-1.3) mg/dl AST (17-59) U/L ALT (21-72) U/L Alkaline Phosphatase (38-126) U/L Troponin I 0.0180 (0.00-0.120) ng/mL NT-Pro-B Natriuret Pep (0-900) pg/ml Total Protein (6.3-8.2) G/DL Albumin (3.5-5.0) g/dL Globulin (2.2-3.9) gm/dL Albumin/Globulin Ratio (1.0-2.1) TSH 3rd Generation (0.46-4.68) mIU/ML 03/08/18 Range/Units 08:43 WBC (4.8-10.8) K/uL RBC (4.40-5.90) Mil/uL Hgb (12.0-18.0) g/dL Hct (35.0-51.0) % MCV (80.0-94.0) fl MCH (27.0-31.0) pg MCHC (33.0-37.0) g/dL RDW (11.5-14.5) % Plt Count (130-400) K/uL MPV (7.2-11.7) fl Neut % (Auto) (50.0-75.0) % Lymph % (Auto) (20.0-40.0) % Gove % (Auto) (0.0-10.0) % Eos % (Auto) (0.0-4.0) % Baso % (Auto) (0.0-2.0) % Neut # (Auto) (1.8-7.0) K/uL Lymph # (Auto) (1.0-4.3) K/uL Gove # (Auto) (0.0-0.8) K/uL Eos # (Auto) (0.0-0.7) K/uL Baso # (Auto) (0.0-0.2) K/uL PT (9.8-13.1) Seconds INR APTT (25.6-37.1) Seconds Sodium 139 (132-148) mmol/l Potassium 4.2 (3.6-5.0) MMOL/L Chloride 111 H (98-107) mmol/L Carbon Dioxide 22 (22-30) mmol/L Anion Gap 10 (10-20) BUN 17 (9-20) mg/dl Creatinine 1.2 (0.8-1.5) mg/dl Est GFR ( Amer) > 60 Est GFR (Non-Af Amer) > 60 Random Glucose 101 (75-110) mg/dL Calcium 9.0 (8.4-10.2) mg/dL Magnesium 2.1 (1.6-2.3) MG/DL Total Bilirubin 1.0 (0.2-1.3) mg/dl AST 83 H (17-59) U/L ALT 117 H (21-72) U/L Alkaline Phosphatase 60 (38-126) U/L Troponin I 0.0210 (0.00-0.120) ng/mL NT-Pro-B Natriuret Pep 1600 H (0-900) pg/ml Total Protein 6.8 (6.3-8.2) G/DL Albumin 3.7 (3.5-5.0) g/dL Globulin 3.2 (2.2-3.9) gm/dL Albumin/Globulin Ratio 1.2 (1.0-2.1) TSH 3rd Generation 1.54 (0.46-4.68) mIU/ML Laboratory Results - last 24 hr 03/08/18 03/08/18 03/08/18 08:43 08:43 08:43 WBC 8.0 RBC 5.29 Hgb 14.1 Hct 43.1 MCV 81.5 MCH 26.7 L MCHC 32.7 L RDW 15.2 H Plt Count 213 MPV 9.6 Neut % (Auto) 57.6 Lymph % (Auto) 28.1 Gove % (Auto) 12.4 H Eos % (Auto) 1.2 Baso % (Auto) 0.7 Neut # (Auto) 4.6 Lymph # (Auto) 2.2 Gove # (Auto) 1.0 H Eos # (Auto) 0.1 Baso # (Auto) 0.1 PT 12.4 INR 1.1 APTT 32.2 Sodium 139 Potassium 4.2 Chloride 111 H Carbon Dioxide 22 Anion Gap 10 BUN 17 Creatinine 1.2 Est GFR ( Amer) > 60 Est GFR (Non-Af Amer) > 60 Random Glucose 101 Calcium 9.0 Magnesium 2.1 Total Bilirubin 1.0 AST 83 H ALT 117 H Alkaline Phosphatase 60 Troponin I 0.0210 NT-Pro-B Natriuret Pep 1600 H Total Protein 6.8 Albumin 3.7 Globulin 3.2 Albumin/Globulin Ratio 1.2 TSH 3rd Generation 1.54 03/08/18 15:35 WBC RBC Hgb Hct MCV MCH MCHC RDW Plt Count MPV Neut % (Auto) Lymph % (Auto) Gove % (Auto) Eos % (Auto) Baso % (Auto) Neut # (Auto) Lymph # (Auto) Gove # (Auto) Eos # (Auto) Baso # (Auto) PT INR APTT Sodium Potassium Chloride Carbon Dioxide Anion Gap BUN Creatinine Est GFR ( Amer) Est GFR (Non-Af Amer) Random Glucose Calcium Magnesium Total Bilirubin AST ALT Alkaline Phosphatase Troponin I 0.0180 NT-Pro-B Natriuret Pep Total Protein Albumin Globulin Albumin/Globulin Ratio TSH 3rd Generation EKG/Cardiology Studies: Cardiology / EKG Studies 03/08/18 08:20 ELECTROCARDIOGRAM Stat Comment: Mode Of Transportation: Reason For Exam: needed Critical Care Progress Note - Nutrition Nutrition: Nutrition Category Date Time Status Heart Healthy Diet [DIET] Diets 03/08/18 Lunch Active Attending/Attestation - Attestation I have personally seen and examined this patient.: Yes I have fully participated in the care of the patient.: Yes I have reviewed all pertinent clinical information: Yes Notes (Text): 03/08/18 18:36 Today: Thursday, March 08, 2018 The patient was Seen/interviewed and examined by me at the bedside, Medical records reviewed and Management issues were discussed and formulated with the house staff. Events reviewed I have reviewed all the relevant clinical, laboratory, hemodynamic, radiographic data and medications Pain issues, skin care, head of the bed elevation, glycemic control were addressed. I concur with resident's assessment and plan of care as transcribed in Dr. Flood note. 03/08/18 18:36
[2018-03-08] MEDS: Metoprolol 1 mg/ml Inj IVP SCH (17:31)
[2018-03-08 19:15] LABS: BARBITURATES, UR NEGATIVE (NEGATIVE); BENZODIAZEPINES, UR NEGATIVE (NEGATIVE); OPIATES, UR NEGATIVE (NEGATIVE); PHENCYCLIDINE, UR NEGATIVE (NEGATIVE)
[2018-03-09] MEDS: Metoprolol 1 mg/ml Inj IVP SCH ×5 (00:57→21:34)
[2018-03-09 05:32] LABS: BASO # 0.1 K/uL (0.0-0.2); BASO % 0.6 % (0.0-2.0); EOS # 0.1 K/uL (0.0-0.7); EOS % 1.5 % (0.0-4.0); HEMOGLOBIN 13.2 g/dL (12.0-18.0); LYMPH # 2.2 K/uL (1.0-4.3); LYMPH % 25.6 % (20.0-40.0); MEAN CELL VOLUME 82.2 fl (80.0-94.0); MEAN CORPUSCULAR HEMOGLOBIN 26.6 pg (27.0-31.0); MEAN CORPUSCULAR HGB CONC 32.3 g/dL (33.0-37.0); MEAN PLATELET VOLUME 10.1 fl (7.2-11.7); MONO # 1.3 K/uL (0.0-0.8); MONO % 15.2 % (0.0-10.0); NEUT # 4.9 K/uL (1.8-7.0); NEUT % 57.1 % (50.0-75.0); RBC 4.95 Mil/uL (4.40-5.90); RED CELL DISTRIBUTION WIDTH 15.1 % (11.5-14.5); WHITE BLOOD COUNT 8.6 K/uL (4.8-10.8)
[2018-03-09 05:54] LABS: ALB/GLOB RATIO 1.2 (1.0-2.1); ALBUMIN 3.4 g/dL (3.5-5.0); ALT/SGPT 97 U/L (21-72); AST/SGOT 65 U/L (17-59); BLOOD UREA NITROGEN 14 mg/dl (9-20); CALCIUM 8.6 mg/dL (8.4-10.2); GFR NON-AFRICAN AMERICAN > 60
[2018-03-09] MEDS ORDERED: Enoxaparin 40 mg Syringe SC SCH (09:00)
--- NOTE | 2018-03-09 10:22 | CP.CCUPN ---
Addendum entered and electronically signed by Emelina Flood MD 03/09/18 15:07: Plan for Cath and ANDRE tomorrow with Dr. Morales at [facility]. Eliquis held and NPO after midnight. Original Note: <Emelina Flood - Last Filed: 03/09/18 15:04> CCU Subjective - Physician Review Subjective (Free Text): Pt is a 58 y/o male presenting with 3 wk history of worsening SOB found on presentation to be in Atrial Fibrillation with RVR and Acute CHF exacerbation. 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 Denies CP, palpitations, SOB, cough. 03/09/18 09:05 CCU Objective - Vital Signs / Intake & Output Vital Signs (Last 4 hours): Vital Signs Temp Pulse Resp BP Pulse Ox 03/09/18 08:20 97.8 F 91 H 20 124/56 L 100 03/09/18 07:00 69 16 116/49 L 100 Intake and Output (Last 8hrs): Intake & Output 03/08/18 03/09/18 03/09/18 22:59 06:59 14:59 Intake Total 20 125 Output Total 1600 900 Balance -1580 -775 Weight 383 lb 383 lb 3.2 oz Intake: IV 20 125 Output: Urine 1600 900 Urine, Voided 1600 900 - Physical Exam Head: Positive for: Atraumatic, Normocephalic Pupils: Positive for: PERRL Conjunctiva: Positive for: Normal Mouth: Positive for: Moist Mucous Membranes Pharnyx: Positive for: Normal Respiratory/Chest: Positive for: Clear to Auscultation. Negative for: Wheezes, Rales, Rhonchi, Tachypneic Cardiovascular: Positive for: Irregular Rhythm, Tachycardic. Negative for: Murmurs Abdomen: Positive for: Normal Bowel Sounds. Negative for: Tenderness, Distention Upper Extremity: Positive for: Capillary Refill < 2s. Negative for: Edema Lower Extremity: Positive for: Capillary Refill < 2 s. Negative for: Edema, CALF TENDERNESS, Teodora's Sign, Temperature Abnormalties Neurological: Positive for: Speech Normal Skin: Positive for: Normal Color Psychiatric: Positive for: Alert, Oriented x 3 - Medications Active Medications: Active Medications Generic Name Dose Route Start Last Admin Trade Name Asael PRN Reason Stop Dose Admin Apixaban 5 mg 03/09/18 09:00 Eliquis PO Q12 SARAI Protocol Furosemide 40 mg 03/08/18 17:00 03/08/18 17:31 Lasix IVP 40 mg BID SARAI Administration Diltiazem HCl 125 mg/ Sodium 125 mls @ 20 mls/hr 03/09/18 06:43 Chloride IV 03/09/18 12:57 [id number] ONE Protocol 20 MG/HR Metoprolol Tartrate 5 mg 03/08/18 22:00 03/09/18 04:19 Lopressor IVP 5 mg Q6 SARAI Administration - Patient Studies Lab Studies: Lab Studies 03/09/18 03/09/18 03/08/18 Range/Units 04:20 04:20 21:14 WBC 8.6 (4.8-10.8) K/uL RBC 4.95 (4.40-5.90) Mil/uL Hgb 13.2 (12.0-18.0) g/dL Hct 40.7 (35.0-51.0) % MCV 82.2 (80.0-94.0) fl MCH 26.6 L (27.0-31.0) pg MCHC 32.3 L (33.0-37.0) g/dL RDW 15.1 H (11.5-14.5) % Plt Count 195 (130-400) K/uL MPV 10.1 (7.2-11.7) fl Neut % (Auto) 57.1 (50.0-75.0) % Lymph % (Auto) 25.6 (20.0-40.0) % [place] % (Auto) 15.2 H (0.0-10.0) % Eos % (Auto) 1.5 (0.0-4.0) % Baso % (Auto) 0.6 (0.0-2.0) % Neut # (Auto) 4.9 (1.8-7.0) K/uL Lymph # (Auto) 2.2 (1.0-4.3) K/uL [place] # (Auto) 1.3 H (0.0-0.8) K/uL Eos # (Auto) 0.1 (0.0-0.7) K/uL Baso # (Auto) 0.1 (0.0-0.2) K/uL Sodium 138 (132-148) mmol/l Potassium 3.6 (3.6-5.0) MMOL/L Chloride 106 (98-107) mmol/L Carbon Dioxide 30 (22-30) mmol/L Anion Gap 6 L (10-20) BUN 14 (9-20) mg/dl Creatinine 1.2 (0.8-1.5) mg/dl Est GFR ( Amer) > 60 Est GFR (Non-Af Amer) > 60 Random Glucose 93 (75-110) mg/dL Calcium 8.6 (8.4-10.2) mg/dL Magnesium 2.3 (1.6-2.3) MG/DL Total Bilirubin 1.5 H (0.2-1.3) mg/dl AST 65 H D (17-59) U/L ALT 97 H (21-72) U/L Alkaline Phosphatase 53 (38-126) U/L Troponin I 0.0240 (0.00-0.120) ng/mL Total Protein 6.3 (6.3-8.2) G/DL Albumin 3.4 L (3.5-5.0) g/dL Globulin 2.9 (2.2-3.9) gm/dL Albumin/Globulin Ratio 1.2 (1.0-2.1) Urine Opiates Screen (NEGATIVE) Urine Methadone Screen (NEGATIVE) Ur Barbiturates Screen (NEGATIVE) Ur Phencyclidine Scrn (NEGATIVE) Ur Amphetamines Screen (NEGATIVE) U Benzodiazepines Scrn (NEGATIVE) U Oth Cocaine Metabols (NEGATIVE) U Cannabinoids Screen (NEGATIVE) 03/08/18 03/08/18 Range/Units 18:56 15:35 WBC (4.8-10.8) K/uL RBC (4.40-5.90) Mil/uL Hgb (12.0-18.0) g/dL Hct (35.0-51.0) % MCV (80.0-94.0) fl MCH (27.0-31.0) pg MCHC (33.0-37.0) g/dL RDW (11.5-14.5) % Plt Count (130-400) K/uL MPV (7.2-11.7) fl Neut % (Auto) (50.0-75.0) % Lymph % (Auto) (20.0-40.0) % [place] % (Auto) (0.0-10.0) % Eos % (Auto) (0.0-4.0) % Baso % (Auto) (0.0-2.0) % Neut # (Auto) (1.8-7.0) K/uL Lymph # (Auto) (1.0-4.3) K/uL [place] # (Auto) (0.0-0.8) K/uL Eos # (Auto) (0.0-0.7) K/uL Baso # (Auto) (0.0-0.2) K/uL Sodium (132-148) mmol/l Potassium (3.6-5.0) MMOL/L Chloride (98-107) mmol/L Carbon Dioxide (22-30) mmol/L Anion Gap (10-20) BUN (9-20) mg/dl Creatinine (0.8-1.5) mg/dl Est GFR ( Amer) Est GFR (Non-Af Amer) Random Glucose (75-110) mg/dL Calcium (8.4-10.2) mg/dL Magnesium (1.6-2.3) MG/DL Total Bilirubin (0.2-1.3) mg/dl AST (17-59) U/L ALT (21-72) U/L Alkaline Phosphatase (38-126) U/L Troponin I 0.0180 (0.00-0.120) ng/mL Total Protein (6.3-8.2) G/DL Albumin (3.5-5.0) g/dL Globulin (2.2-3.9) gm/dL Albumin/Globulin Ratio (1.0-2.1) Urine Opiates Screen Negative (NEGATIVE) Urine Methadone Screen Negative (NEGATIVE) Ur Barbiturates Screen Negative (NEGATIVE) Ur Phencyclidine Scrn Negative (NEGATIVE) Ur Amphetamines Screen Negative (NEGATIVE) U Benzodiazepines Scrn Negative (NEGATIVE) U Oth Cocaine Metabols Negative (NEGATIVE) U Cannabinoids Screen Negative (NEGATIVE) Laboratory Results - last 24 hr 03/08/18 03/08/18 03/08/18 15:35 18:56 21:14 WBC RBC Hgb Hct MCV MCH MCHC RDW Plt Count MPV Neut % (Auto) Lymph % (Auto) [place] % (Auto) Eos % (Auto) Baso % (Auto) Neut # (Auto) Lymph # (Auto) [place] # (Auto) Eos # (Auto) Baso # (Auto) Sodium Potassium Chloride Carbon Dioxide Anion Gap BUN Creatinine Est GFR ( Amer) Est GFR (Non-Af Amer) Random Glucose Calcium Magnesium Total Bilirubin AST ALT Alkaline Phosphatase Troponin I 0.0180 0.0240 Total Protein Albumin Globulin Albumin/Globulin Ratio Urine Opiates Screen Negative Urine Methadone Screen Negative Ur Barbiturates Screen Negative Ur Phencyclidine Scrn Negative Ur Amphetamines Screen Negative U Benzodiazepines Scrn Negative U Oth Cocaine Metabols Negative U Cannabinoids Screen Negative 03/09/18 03/09/18 04:20 04:20 WBC 8.6 RBC 4.95 Hgb 13.2 Hct 40.7 MCV 82.2 MCH 26.6 L MCHC 32.3 L RDW 15.1 H Plt Count 195 MPV 10.1 Neut % (Auto) 57.1 Lymph % (Auto) 25.6 [place] % (Auto) 15.2 H Eos % (Auto) 1.5 Baso % (Auto) 0.6 Neut # (Auto) 4.9 Lymph # (Auto) 2.2 [place] # (Auto) 1.3 H Eos # (Auto) 0.1 Baso # (Auto) 0.1 Sodium 138 Potassium 3.6 Chloride 106 Carbon Dioxide 30 Anion Gap 6 L BUN 14 Creatinine 1.2 Est GFR ( Amer) > 60 Est GFR (Non-Af Amer) > 60 Random Glucose 93 Calcium 8.6 Magnesium 2.3 Total Bilirubin 1.5 H AST 65 H D ALT 97 H Alkaline Phosphatase 53 Troponin I Total Protein 6.3 Albumin 3.4 L Globulin 2.9 Albumin/Globulin Ratio 1.2 Urine Opiates Screen Urine Methadone Screen Ur Barbiturates Screen Ur Phencyclidine Scrn Ur Amphetamines Screen U Benzodiazepines Scrn U Oth Cocaine Metabols U Cannabinoids Screen Critical Care Progress Note - Nutrition Nutrition: Nutrition Category Date Time Status Heart Healthy Diet [DIET] Diets 03/08/18 Lunch Active Assessment/Plan - Assessment and Plan (Free Text) Assessment: Assessment: Pt is a 58 y/o male presenting with 3 wk history of worsening SOB found on presentation to be in Atrial Fibrillation with RVR and Acute CHF exacerbation. #Hypotensive -Noted to have low blood pressures this morning with systolic in 80's -Will hold Ca [place] and Diuretic for now. -Bolus 500NS given #SOB -resolved -Etiology likely multifactorial. May be 2/2 to decompensated CHF vs Arrythmia #Atrial Fibrillation w/ RVR -Still tachycardic with irregular rhythm despite being on 2 AV dennise blocking agents -Will consider adding Digoxing or Amiodorone for further rhythm control if Atrial Fibrillation persists pending Echo results. -Cardiology recommendations appreciated. Dr. Morales #CHF Exacerbation, acute - Net output 4L overnight - Cxray on admission- notable for enlarged cardiac silhouette - ProBNP 1600 on admission - Pt denies prior hx of CHF, though on history has symptoms suggestive of PND - F/U Echo results Discussed case with Dr. Santamaria <Timmy Santamaria - Last Filed: 03/09/18 17:59> CCU Subjective - Physician Review Subjective (Free Text): Attestation: Patient seen and examined at the bedside with Resident Dr. Skyler Flood; and I agree with her outline of plans and management documented below as discussed on AM rounds reflecting my review of all applicable clinical data, and participation in the care of the patient throughout the day in ICU; today, March 09, 2018.
[2018-03-09] MEDS ORDERED: Sodium Chloride 0.9% 500 ML IV ONE (10:40)
--- NOTE | 2018-03-09 12:46 | CP.PCM.PN ---
Subjective - Date & Time of Evaluation Date of Evaluation: 03/09/18 Time of Evaluation: 12:30 - Subjective Subjective: pt feels better sp diuretics. less orthopnea. no palp. hr 100 on iv lopressor only as bp dropped on cardizem. no cp Objective - Vital Signs/Intake and Output Vital Signs (last 24 hours): Temp Pulse Resp BP Pulse Ox 98.5 F 87 18 110/51 L 95 03/09/18 12:00 03/09/18 12:00 03/09/18 12:00 03/09/18 12:00 03/09/18 12:00 Intake and Output: 03/09/18 03/09/18 06:59 18:59 Intake Total 145 Output Total 2500 Balance -2355 - Medications Medications: Current Medications Apixaban (Eliquis) 5 mg PO Q12 [facility]; Protocol Last Admin: 03/09/18 10:44 Dose: 5 mg Furosemide (Lasix) 40 mg IVP BID [facility] Last Admin: 03/08/18 17:31 Dose: 40 mg Metoprolol Tartrate (Lopressor) 5 mg IVP Q6 [facility] Last Admin: 03/09/18 04:19 Dose: 5 mg - Labs Labs: 03/09/18 04:20 03/09/18 04:20 PT 12.4 Seconds (9.8-13.1) 03/08/18 08:43 INR 1.1 03/08/18 08:43 APTT 32.2 Seconds (25.6-37.1) 03/08/18 08:43 - Constitutional Appears: Well - Head Exam Head Exam: ATRAUMATIC, NORMAL INSPECTION, NORMOCEPHALIC - Eye Exam Eye Exam: EOMI, Normal appearance, PERRL. absent: Conjunctival injection, Nystagmus, Periorbital swelling, Periorbital tenderness, Scleral icterus Pupil Exam: NORMAL ACCOMODATION, PERRL - ENT Exam ENT Exam: Mucous Membranes Moist, Normal Exam. absent: Mucous Membranes Dry, Normal External Ear Exam, Normal Oropharynx, TM's Normal Bilaterally - Neck Exam Neck Exam: Full ROM, Normal Inspection. absent: Lymphadenopathy, Meningismus, Tenderness, Thyromegaly - Respiratory Exam Respiratory Exam: Rales, NORMAL BREATHING PATTERN. absent: Accessory Muscle Use, Chest Wall Tenderness, Decreased Breath Sounds, Clear to Ausculation Bilateral, Prolonged Expiratory Phase, Rhonchi, Wheezes, Respiratory Distress, Stridor - Cardiovascular Exam Cardiovascular Exam: Tachycardia, Irregular Rhythm, +S1, +S2, Murmur. absent: Bradycardia, Clicks, Diastolic murmur, Gallop, REGULAR RHYTHM, JVD, RRR, Rubs, +S4 - GI/Abdominal Exam GI & Abdominal Exam: Soft, Normal Bowel Sounds. absent: Bruit, Distended, Firm, Guarding, Rigid, Tenderness, Diminished Bowel Sounds, Hernia, Hyperactive Bowel Sounds, Hypoactive Bowel Sounds, Organomegaly, Pulsatile Mass, Rebound, Mass - Rectal Exam Rectal Exam: Deferred - Extremities Exam Extremities Exam: Pedal Edema. absent: Calf Tenderness, Full ROM, Joint Swelling, Normal Capillary Refill, Normal Inspection, Tenderness - Back Exam Back Exam: NORMAL INSPECTION. absent: CVA tenderness (L), CVA tenderness (R), Full ROM, muscle spasm, paraspinal tenderness, rash noted, tenderness, vertebral tenderness - Neurological Exam Neurological Exam: Alert, Awake, CN II-XII Intact, Normal Gait, Oriented x3 - Psychiatric Exam Psychiatric exam: Normal Affect, Normal Mood. absent: Agitated, Anxious, Depressed, Flat Affect, Homicidal Ideation, Manic, Suicidal Ideation - Skin Skin Exam: Dry, Intact, Normal Color, Warm. absent: Abrasion, Cyanosis, Diaphoretic, Erythema, Mottled, Pallor, Pallor, Petechiae, Rash, Urticaria, Vesicles Assessment and Plan (1) Cardiomyopathy Status: Acute (2) Decreased cardiac ejection fraction Status: Acute (3) Mitral regurgitation Status: Acute (4) LAE (left atrial enlargement) Status: Acute (5) Pericardial effusion Status: Acute (6) CHF (congestive heart failure) Status: Acute (7) New onset a-fib Status: Acute - Assessment and Plan (Free Text) Plan: echo images personally reviewed. EF 40% with global hypokinesis, most pronounced in anteroseptal region. moderate LAE and MR. mild pericardial effusion. Pt will need cath to ro cad if cath nml then will do eliza and attempt cardioversion. npo p mn hold anticoag for cath d/w pt at length. 65 min total
--- NOTE | 2018-03-09 20:59 | CARD ---
APPROVED REPORT Date of service: 03/09/2018 EXAM: Two-dimensional and M-mode echocardiogram with Doppler and color Doppler. Other Information Quality : GoodRhythm : Atrial Fibrillation Technically limited study due to 4C views limited due to body hibatus INDICATION Congestive Heart Failure 2D DIMENSIONS IVSd1.85 (0.7-1.1cm)LVDd4.85 (3.9-5.9cm) LVOT Diameter2.45 (1.8-2.4cm)PWd1.61 (0.7-1.1cm) IVSs1.74 (0.8-1.2cm)LVDs3.83 (2.5-4.0cm) FS (%) 21.0 %PWs2.10 (0.8-1.2cm) M-Mode DIMENSIONS Left Atrium (MM)5.88 (2.5-4.0cm)IVSd1.25 (0.7-1.1cm) Aortic Root2.79 (2.2-3.7cm)LVDd4.82 (4.0-5.6cm) Aortic Cusp Exc.2.24 (1.5-2.0cm)PWd1.29 (0.7-1.1cm) IVSs1.84 cmFS (%) 32 % LVDs3.27 (2.0-3.8cm)PWs1.84 cm Mitral Valve E/A ratio0.0 TDI E/Lateral E'0.0E/Medial E'0.0 Tricuspid Valve TR Peak [id number] [id number] Peak Gr.14mmHg [id number] LEFT VENTRICLE The left ventricle is normal size. There is mild concentric left ventricular hypertrophy. The systolic function is moderately impaired. The estimated ejection fraction is 35-40% There is global hypokinesis of the left ventricle. The left ventricular diastolic function could not be assessed due to underlying atrial fibrillation. No left ventricle thrombus noted on this study. There is no ventricular septal defect visualized. There is no left ventricular aneurysm. There is no mass noted in the left ventricle. RIGHT VENTRICLE The right ventricle is normal size. There is normal right ventricular wall thickness. The right ventricular systolic function is normal. ATRIA The left atrium is moderately dilated. The right atrium size is normal. There is a wire noticed in RA, correlate clinically. The interatrial septum is intact with no evidence for an atrial septal defect. AORTIC VALVE The aortic valve is normal in structure. No aortic regurgitation is present. There is no aortic valvular stenosis. There is no aortic valvular vegetation. MITRAL VALVE The mitral valve is normal in structure. There is no evidence of mitral valve prolapse. There is no mitral valve stenosis. There is mild mitral valve regurgitation noted. TRICUSPID VALVE The tricuspid valve is normal in structure. There is mild tricuspid valve regurgitation noted. RVSP is calculated at 25 mm Hg. There is no tricuspid valve prolapse or vegetation. There is no tricuspid valve stenosis. PULMONIC VALVE The pulmonary valve is normal in structure. There is no pulmonic valvular regurgitation. There is no pulmonic valvular stenosis. GREAT VESSELS The aortic root is normal in size. The ascending aorta is normal in size. The pulmonary artery is normal. The IVC is normal in size and collapses >50% with inspiration. PERICARDIAL EFFUSION There is no pericardial effusion. There is no pleural effusion. <Conclusion> There is mild concentric left ventricular hypertrophy. The systolic function is moderately impaired. The estimated ejection fraction is 35-40% The left ventricular diastolic function could not be assessed due to underlying atrial fibrillation. The left atrium is moderately dilated. There is mild mitral valve regurgitation noted. There is mild tricuspid valve regurgitation noted. RVSP is calculated at 25 mm Hg.
[2018-03-10] MEDS: Metoprolol 1 mg/ml Inj IVP SCH ×3 (04:54→16:53)
[2018-03-10 05:37] LABS: HEMOGLOBIN 13.9 g/dL (12.0-18.0); MEAN CELL VOLUME 81.8 fl (80.0-94.0); MEAN CORPUSCULAR HEMOGLOBIN 26.1 pg (27.0-31.0); MEAN CORPUSCULAR HGB CONC 31.9 g/dL (33.0-37.0); RBC 5.33 Mil/uL (4.40-5.90); RED CELL DISTRIBUTION WIDTH 15.4 % (11.5-14.5); WHITE BLOOD COUNT 7.8 K/uL (4.8-10.8)
[2018-03-10 05:51] LABS: BLOOD UREA NITROGEN 12 mg/dl (9-20); CALCIUM 8.8 mg/dL (8.4-10.2); GFR NON-AFRICAN AMERICAN > 60
[2018-03-10] MEDS ORDERED: Metoprolol 1 mg/ml Inj IVP STA (07:27)
--- NOTE | 2018-03-10 10:40 | CP.CCUPN ---
<RemigioEmelina - Last Filed: 03/10/18 11:42> CCU Subjective - Physician Review Subjective (Free Text): Pt is a 58 y/o male presenting with 3 wk history of worsening SOB found on presentation to be in Atrial Fibrillation with RVR and Acute CHF exacerbation. Overnight events: -Tachycardic overnight with max at 140. Hospitalist restarted pt on Cardizem drip. HR improved to 110s, irregular rhythm -NPO Seen and examined this morning. Denies CP, palpitations, SOB, cough. Plan for Cath at [facility] today. As per RN, Liaison Officer will not be doing ANDRE at the same time. CCU Objective - Vital Signs / Intake & Output Vital Signs (Last 4 hours): Vital Signs Temp Pulse Resp BP Pulse Ox 03/10/18 08:00 97.8 F 125 H 14 135/53 L 97 03/10/18 07:34 117 H 159/96 H Intake and Output (Last 8hrs): Intake & Output 03/09/18 03/10/18 03/10/18 22:59 06:59 14:59 Intake Total 0 Output Total 900 500 Balance 0 -900 -500 Weight 382 lb 4.8 oz Intake: Lipid 0 Output: Urine 900 500 Urine, Voided 900 500 - Physical Exam Head: Positive for: Atraumatic, Normocephalic Pupils: Positive for: PERRL Conjunctiva: Positive for: Normal Mouth: Positive for: Moist Mucous Membranes Pharnyx: Positive for: Normal Respiratory/Chest: Positive for: Clear to Auscultation. Negative for: Wheezes, Rales, Rhonchi, Tachypneic Cardiovascular: Positive for: Irregular Rhythm, Tachycardic. Negative for: Murmurs Abdomen: Positive for: Normal Bowel Sounds. Negative for: Tenderness, Distention Upper Extremity: Positive for: Capillary Refill < 2s. Negative for: Edema Lower Extremity: Positive for: Capillary Refill < 2 s. Negative for: Edema, CALF TENDERNESS, Teodora's Sign, Temperature Abnormalties Neurological: Positive for: Speech Normal Skin: Positive for: Normal Color Psychiatric: Positive for: Alert, Oriented x 3 - Medications Active Medications: Active Medications Generic Name Dose Route Start Last Admin Trade Name Freq PRN Reason Stop Dose Admin Apixaban 5 mg 03/09/18 09:00 03/09/18 10:44 Eliquis PO 5 mg Q12 [facility] Administration Protocol Furosemide 40 mg 03/08/18 17:00 03/08/18 17:31 Lasix IVP 40 mg BID [facility] Administration Metoprolol Tartrate 5 mg 03/08/18 22:00 03/10/18 04:54 Lopressor IVP 5 mg Q6 [facility] Administration - Patient Studies Lab Studies: Microbiology Studies 03/08/18 15:20 MRSA Culture (Admit) - Final Nose MRSA NOT DETECTED Lab Studies 03/10/18 03/10/18 Range/Units 04:30 04:30 WBC 7.8 (4.8-10.8) K/uL RBC 5.33 (4.40-5.90) Mil/uL Hgb 13.9 (12.0-18.0) g/dL Hct 43.6 (35.0-51.0) % MCV 81.8 (80.0-94.0) fl MCH 26.1 L (27.0-31.0) pg MCHC 31.9 L (33.0-37.0) g/dL RDW 15.4 H (11.5-14.5) % Plt Count 189 (130-400) K/uL Sodium 138 (132-148) mmol/l Potassium 4.0 (3.6-5.0) MMOL/L Chloride 104 (98-107) mmol/L Carbon Dioxide 27 (22-30) mmol/L Anion Gap 11 (10-20) BUN 12 (9-20) mg/dl Creatinine 1.0 (0.8-1.5) mg/dl Est GFR ( Amer) > 60 Est GFR (Non-Af Amer) > 60 Random Glucose 96 (75-110) mg/dL Calcium 8.8 (8.4-10.2) mg/dL Laboratory Results - last 24 hr 03/10/18 03/10/18 04:30 04:30 WBC 7.8 RBC 5.33 Hgb 13.9 Hct 43.6 MCV 81.8 MCH 26.1 L MCHC 31.9 L RDW 15.4 H Plt Count 189 Sodium 138 Potassium 4.0 Chloride 104 Carbon Dioxide 27 Anion Gap 11 BUN 12 Creatinine 1.0 Est GFR ( Amer) > 60 Est GFR (Non-Af Amer) > 60 Random Glucose 96 Calcium 8.8 Critical Care Progress Note - Nutrition Nutrition: Nutrition Category Date Time Status NPO Diet [DIET] Diets 03/09/18 Dinner Active Assessment/Plan - Assessment and Plan (Free Text) Assessment: Pt is a 58 y/o male presenting with 3 wk history of worsening SOB found on presentation to be in Atrial Fibrillation with RVR and Acute CHF exacerbation. Plan for Cath today at [facility]. Has been NPO since midnight. #Atrial Fibrillation w/ RVR -Still tachycardic with irregular rhythm. Plan for Cath today with Dr. Morales to rule out vessel disease -Cardizem discontinued as per Dr. Morales's recommendations. If HR is elevated, will increase frequency of Lopressor to q4. -Cardiologyon board- Dr. Morales #CHF Exacerbation, acute - Echo: EF 35-40%, L atrium moderately dilated - Cxray on admission- notable for enlarged cardiac silhouette - ProBNP 1600 on admission - Pt denies prior hx of CHF, though on history has symptoms suggestive of PND #Hypotensive -Resolved Discussed case with Dr. Santamaria <Timmy Santamaria - Last Filed: 03/10/18 18:15> CCU Subjective - Physician Review Subjective (Free Text): Attestation: Patient seen and examined at the bedside with Resident Dr. Skyler Flood; and I agree with her outline of plans and management documented below as discussed on AM rounds reflecting my review of all applicable clinical data, and participation in the care of the patient throughout the day in ICU; today, March 10, 2018.
[2018-03-10 13:45] VITALS: BMI 46.6
--- NOTE | 2018-03-10 15:55 | PQF ---
PROVIDER RESPONSE TEXT: Morbid obesity REVIEWER QUERY TEXT: Documentation Clarification Your help is requested in clarifying the following clinical documentation, if you can please further specify in the medical record and discharge summary. EMR has the patient listed as 6' 4", weight 382 pounds with a BMI of 46.5 Please clarify if there is an associated diagnosis or not. If yes please document the diagnosis and t he BMI results The patient's Clinical Indicators include: Cvt Tech: BMI 46.5 Obesity Query created by: Smita Styles on 03/10/2018 2:13 PM Electronically signed by: Romulo Hale 03/10/2018 3:52 PM
[2018-03-10] MEDS ORDERED: Metoprolol Succinate 50 mg XL Tab PO STA (18:18)
[2018-03-10] MEDS ORDERED: Metoprolol Succinate 50 mg XL Tab PO SCH (21:00)
[2018-03-11 05:50] LABS: BASO % 0.3 % (0.0-2.0); EOS # 0.1 K/uL (0.0-0.7); EOS % 1.7 % (0.0-4.0); HEMOGLOBIN 14.4 g/dL (12.0-18.0); LYMPH # 1.8 K/uL (1.0-4.3); LYMPH % 21.4 % (20.0-40.0); MEAN CELL VOLUME 81.5 fl (80.0-94.0); MEAN CORPUSCULAR HEMOGLOBIN 26.1 pg (27.0-31.0); MEAN PLATELET VOLUME 10.3 fl (7.2-11.7); MONO # 1.2 K/uL (0.0-0.8); MONO % 14.5 % (0.0-10.0); NEUT # 5.3 K/uL (1.8-7.0); NEUT % 62.1 % (50.0-75.0); RBC 5.51 Mil/uL (4.40-5.90); RED CELL DISTRIBUTION WIDTH 14.9 % (11.5-14.5); WHITE BLOOD COUNT 8.5 K/uL (4.8-10.8)
[2018-03-11 06:04] LABS: BLOOD UREA NITROGEN 14 mg/dl (9-20); GFR NON-AFRICAN AMERICAN > 60
[2018-03-11 06:05] LABS: B-TYPE NATRIURETIC PEPTIDE 1600 pg/ml (0-900)
[2018-03-11] MEDS ORDERED: Metoprolol Succinate 100 mg XL Tab PO SCH (09:00)
[2018-03-11] MEDS ORDERED: Metoprolol 1 mg/ml Inj ONE (09:18)
[2018-03-11] MEDS ORDERED: Metoprolol 1 mg/ml Inj IVP STA (09:21)
--- NOTE | 2018-03-11 11:28 | CP.PCM.PN ---
<Martin Balderas - Last Filed: 03/11/18 12:00> Subjective - Date & Time of Evaluation Date of Evaluation: 03/11/18 Time of Evaluation: 08:20 - Subjective Subjective: Seen and examined this morning in ICU. Denies CP, palpitations, SOB, cough. Plan ANDRE and CV today. -Tachycardic overnight with max at 140. Irregular rhythm on monitor -NPO Objective - Vital Signs/Intake and Output Vital Signs (last 24 hours): Temp Pulse Resp BP Pulse Ox 98.3 F 145 H 13 171/95 H 97 03/11/18 07:44 03/11/18 10:36 03/11/18 10:00 03/11/18 10:36 03/11/18 10:00 Intake and Output: 03/11/18 03/11/18 06:59 18:59 Intake Total 790 Output Total 4600 550 Balance -3810 -550 - Medications Medications: Current Medications Apixaban (Eliquis) 5 mg PO Q12 [facility]; Protocol Last Admin: 03/09/18 10:44 Dose: 5 mg Furosemide (Lasix) 40 mg IVP BID [facility] Last Admin: 03/08/18 17:31 Dose: 40 mg Metoprolol Succinate (Toprol Xl) 100 mg PO Q12 [facility] Last Admin: 03/11/18 08:33 Dose: 100 mg - Labs Labs: 03/11/18 04:20 03/11/18 04:20 PT 12.4 Seconds (9.8-13.1) 03/08/18 08:43 INR 1.1 03/08/18 08:43 APTT 32.2 Seconds (25.6-37.1) 03/08/18 08:43 - Constitutional Appears: No Acute Distress - Head Exam Head Exam: NORMAL INSPECTION - Eye Exam Eye Exam: EOMI, PERRL - Respiratory Exam Respiratory Exam: Clear to Ausculation Bilateral - Cardiovascular Exam Cardiovascular Exam: Tachycardia, Irregular Rhythm - GI/Abdominal Exam GI & Abdominal Exam: Soft. absent: Distended, Tenderness - Extremities Exam Extremities Exam: absent: Calf Tenderness, Pedal Edema - Neurological Exam Neurological Exam: Alert, Awake, Oriented x3 - Skin Skin Exam: Dry, Warm Assessment and Plan - Assessment and Plan (Free Text) Assessment: 59 yo male patient w/o significant PMH admitted for AFib of new onset with RVR . Plan: - denies chest pain - CXR: no active lung disease, enlarged cardiac silouette - troponins negatives - Echo: EF 35-40%, L atrium moderately dilated - on cardiazem drip, stopped due to BP drop per cardio - continue with Lopressor - Cardiology consulted, recommendations appreciated - Cath yesterday with Dr. Morales at [facility], report pending - For ANDRE today and possible CV - Eliquis held and NPO after midnight. - continue rest of management as ordered Case seen and examined with Dr Jones <Dwight Jones - Last Filed: 03/14/18 08:04> Objective - Vital Signs/Intake and Output Vital Signs (last 24 hours): Temp Pulse Resp BP Pulse Ox 97.8 F 82 20 129/89 98 03/13/18 23:50 03/13/18 23:50 03/13/18 23:50 03/13/18 23:50 03/13/18 23:50 - Medications Medications: Current Medications Amiodarone HCl (Cordarone) 400 mg PO DAILY [facility] Last Admin: 03/13/18 09:13 Dose: 400 mg Amlodipine Besylate (Norvasc) 2.5 mg PO Q12 [facility] Last Admin: 03/13/18 21:35 Dose: 2.5 mg Apixaban (Eliquis) 5 mg PO Q12 [facility]; Protocol Last Admin: 03/09/18 10:44 Dose: 5 mg Furosemide (Lasix) 40 mg PO DAILY [facility] Metoprolol Succinate (Toprol Xl) 50 mg PO Q12 [facility] Last Admin: 03/13/18 21:30 Dose: 50 mg Ramipril (Altace) 2.5 mg PO DAILY [facility] - Labs Labs: 03/12/18 05:30 03/14/18 05:55 PT 12.4 Seconds (9.8-13.1) 03/08/18 08:43 INR 1.1 03/08/18 08:43 APTT 32.2 Seconds (25.6-37.1) 03/08/18 08:43 Assessment and Plan - Assessment and Plan (Free Text) Plan: i was present during evaluation and discussed with Dr Sherrie funes plans of care and mgt transfer to regular floor once stable. dwight Jones M.d.
--- NOTE | 2018-03-11 11:48 | CP.CCUPN ---
<Emelina Flood - Last Filed: 03/11/18 13:44> CCU Subjective - Physician Review Subjective (Free Text): Pt is a 58 y/o male presenting with 3 wk history of worsening SOB found on presentation to be in Atrial Fibrillation with RVR and Acute CHF exacerbation. S/P Cath at [facility] on 03/10- no intervention. Plan for ANDRE and and Cardioversion today. Overnight events: Tachycardic overnight ranging from 120-150 with irregular rhythm. Started on lopressor XL 100mg BID this morning. Seen and examined this morning. Denies CP, palpitations, SOB, cough. Pt states he was told that his cath procedure was clean and did not need any intervention. CCU Objective - Vital Signs / Intake & Output Vital Signs (Last 4 hours): Vital Signs Pulse Resp BP Pulse Ox 03/11/18 10:36 145 H 171/95 H 03/11/18 10:00 130 H 13 175/68 H 97 03/11/18 09:00 152 H 16 154/99 H 96 03/11/18 08:33 151 H 130/85 03/11/18 08:00 145 H Intake and Output (Last 8hrs): Intake & Output 03/10/18 03/11/18 03/11/18 22:59 06:59 14:59 Intake Total 790 Output Total 2250 2350 550 Balance -1460 -2350 -550 Weight 366 lb 9.6 oz Intake: Oral 790 Output: Urine 2250 2350 550 Urine, Voided 2250 2350 550 Other: # Bowel Movements 0 - Physical Exam Head: Positive for: Atraumatic, Normocephalic Pupils: Positive for: PERRL Conjunctiva: Positive for: Normal Mouth: Positive for: Moist Mucous Membranes Pharnyx: Positive for: Normal Respiratory/Chest: Positive for: Clear to Auscultation. Negative for: Wheezes, Rales, Rhonchi, Tachypneic Cardiovascular: Positive for: Irregular Rhythm, Tachycardic. Negative for: Murmurs Abdomen: Positive for: Normal Bowel Sounds. Negative for: Tenderness, Distention Upper Extremity: Positive for: Capillary Refill < 2s, Other (Right groin examined- no swelling or erythema). Negative for: Edema Lower Extremity: Positive for: Capillary Refill < 2 s. Negative for: Edema, CALF TENDERNESS, Teodora's Sign, Temperature Abnormalties Neurological: Positive for: Speech Normal Skin: Positive for: Normal Color Psychiatric: Positive for: Alert, Oriented x 3 - Medications Active Medications: Active Medications Generic Name Dose Route Start Last Admin Trade Name Asael PRN Reason Stop Dose Admin Apixaban 5 mg 03/09/18 09:00 03/09/18 10:44 Eliquis PO 5 mg Q12 [facility] Administration Protocol Furosemide 40 mg 03/08/18 17:00 03/08/18 17:31 Lasix IVP 40 mg BID [facility] Administration Metoprolol Succinate 100 mg 03/11/18 09:00 03/11/18 08:33 Toprol Xl PO 100 mg Q12 [facility] Administration - Patient Studies Lab Studies: Lab Studies 03/11/18 03/11/18 Range/Units 04:20 04:20 WBC 8.5 (4.8-10.8) K/uL RBC 5.51 (4.40-5.90) Mil/uL Hgb 14.4 (12.0-18.0) g/dL Hct 44.9 (35.0-51.0) % MCV 81.5 (80.0-94.0) fl MCH 26.1 L (27.0-31.0) pg MCHC 32.0 L (33.0-37.0) g/dL RDW 14.9 H (11.5-14.5) % Plt Count 188 (130-400) K/uL MPV 10.3 (7.2-11.7) fl Neut % (Auto) 62.1 (50.0-75.0) % Lymph % (Auto) 21.4 (20.0-40.0) % Schuyler % (Auto) 14.5 H (0.0-10.0) % Eos % (Auto) 1.7 (0.0-4.0) % Baso % (Auto) 0.3 (0.0-2.0) % Neut # (Auto) 5.3 (1.8-7.0) K/uL Lymph # (Auto) 1.8 (1.0-4.3) K/uL Schuyler # (Auto) 1.2 H (0.0-0.8) K/uL Eos # (Auto) 0.1 (0.0-0.7) K/uL Baso # (Auto) 0.0 (0.0-0.2) K/uL Sodium 138 (132-148) mmol/l Potassium 3.9 (3.6-5.0) MMOL/L Chloride 103 (98-107) mmol/L Carbon Dioxide 28 (22-30) mmol/L Anion Gap 11 (10-20) BUN 14 (9-20) mg/dl Creatinine 1.1 (0.8-1.5) mg/dl Est GFR ( Amer) > 60 Est GFR (Non-Af Amer) > 60 Random Glucose 88 (75-110) mg/dL Calcium 9.0 (8.4-10.2) mg/dL NT-Pro-B Natriuret Pep 1600 H (0-900) pg/ml Laboratory Results - last 24 hr 03/11/18 03/11/18 04:20 04:20 WBC 8.5 RBC 5.51 Hgb 14.4 Hct 44.9 MCV 81.5 MCH 26.1 L MCHC 32.0 L RDW 14.9 H Plt Count 188 MPV 10.3 Neut % (Auto) 62.1 Lymph % (Auto) 21.4 Schuyler % (Auto) 14.5 H Eos % (Auto) 1.7 Baso % (Auto) 0.3 Neut # (Auto) 5.3 Lymph # (Auto) 1.8 Schuyler # (Auto) 1.2 H Eos # (Auto) 0.1 Baso # (Auto) 0.0 Sodium 138 Potassium 3.9 Chloride 103 Carbon Dioxide 28 Anion Gap 11 BUN 14 Creatinine 1.1 Est GFR ( Amer) > 60 Est GFR (Non-Af Amer) > 60 Random Glucose 88 Calcium 9.0 NT-Pro-B Natriuret Pep 1600 H Critical Care Progress Note - Nutrition Nutrition: Nutrition Category Date Time Status NPO Diet [DIET] Diets 03/11/18 Breakfast Active Assessment/Plan - Assessment and Plan (Free Text) Assessment: Pt is a 58 y/o male presenting with 3 wk history of worsening SOB found on presentation to be in Atrial Fibrillation with RVR and Acute CHF exacerbation. #Atrial Fibrillation w/ RVR -Still tachycardic with irregular rhythm. -S/P Cardiac Cath on 03/10 w/o intervention -C/W Lopressor 100 mid BID PO -Plan for ANDRE and Cardioversion today. -Cardiology- Dr. Morales #CHF Exacerbation, acute - Echo: EF 35-40%, L atrium moderately dilated - Cxray on admission- notable for enlarged cardiac silhouette - ProBNP 1600 - Pt denies prior hx of CHF, though on history has symptoms suggestive of PND Discussed case with Dr. Santamaria <Timmy Santamaria - Last Filed: 03/11/18 17:24> CCU Subjective - Physician Review Subjective (Free Text): Attestation: Patient seen and examined at the bedside with Resident Dr. Skyler Flood; and I agree with her outline of plans and management documented below as discussed on AM rounds reflecting my review of all applicable clinical data, and participation in the care of the patient throughout the day in ICU; today, March 11, 2018.
[2018-03-11] MEDS ORDERED: Midazolam 2 MG/2 ML VIAL ONE (11:50)
[2018-03-11] MEDS ORDERED: Lidocaine 1% Inj (20ml) ONE (11:51)
[2018-03-11] MEDS ORDERED: Esmolol 100 mg/10ml Inj IV ONE (11:51)
[2018-03-11] MEDS ORDERED: Labetalol 5mg/ml (4ml) ONE (11:51)
[2018-03-11] MEDS ORDERED: Etomidate 20 mg/10ml Inj IV ONE (11:51)
[2018-03-11] MEDS ORDERED: Propofol 10 mg/ml Inj (20 ML) ONE (11:51)
[2018-03-11] MEDS ORDERED: Amiodarone 150 MG in Sodium Chloride 0.9% 100 ML IVPB ONE (12:41)
[2018-03-11] MEDS: Amiodarone 450 MG in Sodium Chloride 0.9% 250 ML IV SCH ×2 (12:45→21:46)
--- NOTE | 2018-03-11 12:48 | CP.PCM.PN ---
Subjective - Date & Time of Evaluation Date of Evaluation: 03/10/18 Time of Evaluation: 13:00 - Subjective Subjective: no complaints. echo noted Objective - Vital Signs/Intake and Output Vital Signs (last 24 hours): Temp Pulse Resp BP Pulse Ox 98.3 F 145 H 13 171/95 H 97 03/11/18 07:44 03/11/18 10:36 03/11/18 10:00 03/11/18 10:36 03/11/18 10:00 Intake and Output: 03/11/18 03/11/18 06:59 18:59 Intake Total 790 Output Total 4600 550 Balance -3810 -550 - Medications Medications: Current Medications Apixaban (Eliquis) 5 mg PO Q12 [facility]; Protocol Last Admin: 03/09/18 10:44 Dose: 5 mg Furosemide (Lasix) 40 mg IVP BID [facility] Last Admin: 03/08/18 17:31 Dose: 40 mg Amiodarone HCl 150 mg/ (Dextrose) 103 mls @ 618 mls/hr IVPB ONCE ONE; Protocol Stop: 03/11/18 12:50 Amiodarone HCl 900 mg/ (Dextrose) 518 mls @ 34.53 mls/hr IV .Q15H1M [facility]; Protocol Metoprolol Succinate (Toprol Xl) 50 mg PO Q12 [facility] - Labs Labs: 03/11/18 04:20 03/11/18 04:20 PT 12.4 Seconds (9.8-13.1) 03/08/18 08:43 INR 1.1 03/08/18 08:43 APTT 32.2 Seconds (25.6-37.1) 03/08/18 08:43 - Constitutional Appears: Well - Head Exam Head Exam: ATRAUMATIC, NORMAL INSPECTION, NORMOCEPHALIC - Eye Exam Eye Exam: EOMI, Normal appearance, PERRL. absent: Conjunctival injection, Nystagmus, Periorbital swelling, Periorbital tenderness, Scleral icterus Pupil Exam: NORMAL ACCOMODATION, PERRL - ENT Exam ENT Exam: Mucous Membranes Moist, Normal Exam. absent: Mucous Membranes Dry, Normal External Ear Exam, Normal Oropharynx, TM's Normal Bilaterally - Neck Exam Neck Exam: Full ROM, Normal Inspection. absent: Lymphadenopathy, Meningismus, Tenderness, Thyromegaly - Respiratory Exam Respiratory Exam: Clear to Ausculation Bilateral, NORMAL BREATHING PATTERN. absent: Accessory Muscle Use, Chest Wall Tenderness, Decreased Breath Sounds, Prolonged Expiratory Phase, Rales, Rhonchi, Wheezes, Respiratory Distress, S tridor - Cardiovascular Exam Cardiovascular Exam: Tachycardia, Irregular Rhythm, +S1, +S2, Murmur. absent: Bradycardia, Clicks, Diastolic murmur, Gallop, REGULAR RHYTHM, JVD, RRR, Rubs, +S4 - GI/Abdominal Exam GI & Abdominal Exam: Soft, Normal Bowel Sounds. absent: Bruit, Distended, Firm, Guarding, Rigid, Tenderness, Diminished Bowel Sounds, Hernia, Hyperactive Bowel Sounds, Hypoactive Bowel Sounds, Organomegaly, Pulsatile Mass, Rebound, Mass - Rectal Exam Rectal Exam: Deferred - Extremities Exam Extremities Exam: Full ROM, Normal Capillary Refill, Pedal Edema. absent: Calf Tenderness, Joint Swelling, Normal Inspection, Tenderness - Back Exam Back Exam: NORMAL INSPECTION. absent: CVA tenderness (L), CVA tenderness (R), Full ROM, muscle spasm, paraspinal tenderness, rash noted, tenderness, vertebral tenderness - Neurological Exam Neurological Exam: Alert, Awake, CN II-XII Intact, Normal Gait, Oriented x3. absent: Abnormal Gait, Altered, Motor Sensory Deficit, Reflexes Normal - Psychiatric Exam Psychiatric exam: Normal Affect, Normal Mood. absent: Agitated, Anxious, Depressed, Flat Affect, Homicidal Ideation, Manic, Suicidal Ideation - Skin Skin Exam: Dry, Intact, Normal Color, Warm. absent: Abrasion, Cyanosis, Diaphoretic, Erythema, Mottled, Pallor, Pallor, Petechiae, Rash, Urticaria, Vesicles Assessment and Plan (1) Decreased cardiac ejection fraction Status: Acute (2) Mitral regurgitation Status: Acute (3) LAE (left atrial enlargement) Status: Acute (4) Pericardial effusion Status: Acute (5) CHF (congestive heart failure) Assessment & Plan: acute sys and diastolic chf likely due to afib or nina Status: Acute (6) New onset a-fib Status: Acute (7) NICM (nonischemic cardiomyopathy) Status: Acute - Assessment and Plan (Free Text) Plan: cath performed revealing no sig cad. ef 35%. elevated lvedp. use toprol xl 50 q12 eliza with possible cv tomorrow
--- NOTE | 2018-03-11 12:52 | CP.PCM.PN ---
Subjective - Date & Time of Evaluation Date of Evaluation: 03/11/18 Time of Evaluation: 12:50 - Subjective Subjective: eliza cv consented. pt wo complaints Objective - Vital Signs/Intake and Output Vital Signs (last 24 hours): Temp Pulse Resp BP Pulse Ox 98.3 F 145 H 13 171/95 H 97 03/11/18 07:44 03/11/18 10:36 03/11/18 10:00 03/11/18 10:36 03/11/18 10:00 Intake and Output: 03/11/18 03/11/18 06:59 18:59 Intake Total 790 Output Total 4600 550 Balance -3810 -550 - Medications Medications: Current Medications Amlodipine Besylate (Norvasc) 5 mg PO Q12 [facility] Apixaban (Eliquis) 5 mg PO Q12 [facility]; Protocol Last Admin: 03/09/18 10:44 Dose: 5 mg Furosemide (Lasix) 40 mg IVP BID [facility] Last Admin: 03/08/18 17:31 Dose: 40 mg Amiodarone HCl 450 mg/ Sodium (Chloride) 259 mls @ 34.53 mls/hr IV .Q7H31M [facility]; Protocol Metoprolol Succinate (Toprol Xl) 50 mg PO Q12 [facility] - Labs Labs: 03/11/18 04:20 03/11/18 04:20 PT 12.4 Seconds (9.8-13.1) 03/08/18 08:43 INR 1.1 03/08/18 08:43 APTT 32.2 Seconds (25.6-37.1) 03/08/18 08:43 - Constitutional Appears: Well - Head Exam Head Exam: ATRAUMATIC, NORMAL INSPECTION, NORMOCEPHALIC - Eye Exam Eye Exam: EOMI, Normal appearance, PERRL. absent: Conjunctival injection, Nystagmus, Periorbital swelling, Periorbital tenderness, Scleral icterus Pupil Exam: NORMAL ACCOMODATION, PERRL - ENT Exam ENT Exam: Mucous Membranes Moist, Normal Exam. absent: Mucous Membranes Dry, Normal External Ear Exam, Normal Oropharynx, TM's Normal Bilaterally - Neck Exam Neck Exam: Full ROM, Normal Inspection. absent: Lymphadenopathy, Meningismus, Tenderness, Thyromegaly - Respiratory Exam Respiratory Exam: Clear to Ausculation Bilateral, NORMAL BREATHING PATTERN. absent: Accessory Muscle Use, Chest Wall Tenderness, Decreased Breath Sounds, Prolonged Expiratory Phase, Rales, Rhonchi, Wheezes, Respiratory Distress, Stridor - Cardiovascular Exam Cardiovascular Exam: REGULAR RHYTHM, +S1, +S2, Murmur - GI/Abdominal Exam GI & Abdominal Exam: Soft, Normal Bowel Sounds. absent: Bruit, Distended, Firm, Guarding, Rigid, Tenderness, Diminished Bowel Sounds, Hernia, Hyperactive Bowel Sounds, Hypoactive Bowel Sounds, Organomegaly, Pulsatile Mass, Rebound, Mass - Exam Speculum exam: NORMAL SPECULUM EXAM - Extremities Exam Extremities Exam: Pedal Edema. absent: Calf Tenderness, Full ROM, Joint Swel ling, Normal Capillary Refill, Normal Inspection, Tenderness - Back Exam Back Exam: NORMAL INSPECTION. absent: CVA tenderness (L), CVA tenderness (R), Full ROM, muscle spasm, paraspinal tenderness, rash noted, tenderness, vertebral tenderness - Neurological Exam Neurological Exam: Alert, Awake, CN II-XII Intact, Normal Gait, Oriented x3. absent: Abnormal Gait, Altered, Motor Sensory Deficit, Reflexes Normal - Psychiatric Exam Psychiatric exam: Normal Affect, Normal Mood. absent: Agitated, Anxious, Depressed, Flat Affect, Homicidal Ideation, Manic, Suicidal Ideation - Skin Skin Exam: Dry, Intact, Normal Color, Warm. absent: Abrasion, Cyanosis, Diaphoretic, Erythema, Mottled, Pallor, Pallor, Petechiae, Rash, Urticaria, Vesicles Assessment and Plan (1) CHF (congestive heart failure) Assessment & Plan: acute sys and [place] Status: Acute (2) NICM (nonischemic cardiomyopathy) Status: Acute (3) Mitral regurgitation Status: Acute (4) LAE (left atrial enlargement) Status: Acute (5) Pericardial effusion Status: Acute (6) New onset a-fib Status: Acute - Assessment and Plan (Free Text) Plan: ELIZA AND CV PERFORMED. SUCCESSFUL SR MUSLIM. TOLERATED WELL. AMIODARONE LOADING STARTED. CONT ANTICOAGULATION MAG 2GM LYTES 65 MIN TOTAL
[2018-03-11] MEDS ORDERED: Magnesium Sulfate 2 gm/50 ml 2 GM/50 ML BAG IVPB ONE (12:56)
[2018-03-11] MEDS: Metoprolol Succinate 50 mg XL Tab PO SCH ×2 (14:56→23:43)
[2018-03-11] MEDS: Potassium Chloride 20 mEq/15 ml LIQ UD PO SCH ×2 (14:57→18:46)
--- NOTE | 2018-03-11 20:02 | PQF ---
PROVIDER RESPONSE TEXT: Dilated due to unknown REVIEWER QUERY TEXT: Cardiomyopathy Type Cardiomyopathy is documented in the Medical Record. Please specify the type Such as: -- Alcoholic -- Congestive -- Constrictive -- Dilated -- Hypertensive -- Ischemic -- Obstructive Hypertrophic - IHSS -- Other Hypertrophic -- Other, please specify The patient's Clinical Indicators include: Admitted with orthopnea, SAMAYOA, fatigue. Diagnoses: new onset atrial fibrillation, CHF. Cardiac catheterization performed -- awaiting report. Pending : ANDRE and Cardioversion. Query created by: Smita Styles on 03/11/2018 9:52 AM Electronically signed by: Kelli ROBERTSON 03/11/2018 8:00 PM
[2018-03-12 06:38] LABS: BASO # 0.1 K/uL (0.0-0.2); BASO % 0.6 % (0.0-2.0); EOS # 0.1 K/uL (0.0-0.7); EOS % 0.6 % (0.0-4.0); HEMOGLOBIN 14.8 g/dL (12.0-18.0); LYMPH % 20.8 % (20.0-40.0); MEAN CELL VOLUME 82.2 fl (80.0-94.0); MEAN CORPUSCULAR HEMOGLOBIN 26.1 pg (27.0-31.0); MEAN CORPUSCULAR HGB CONC 31.7 g/dL (33.0-37.0); MEAN PLATELET VOLUME 10.2 fl (7.2-11.7); MONO # 1.6 K/uL (0.0-0.8); RBC 5.68 Mil/uL (4.40-5.90); RED CELL DISTRIBUTION WIDTH 15.1 % (11.5-14.5); WHITE BLOOD COUNT 9.7 K/uL (4.8-10.8)
[2018-03-12 06:50] LABS: ALB/GLOB RATIO 1.1 (1.0-2.1); ALBUMIN 3.7 g/dL (3.5-5.0); ALT/SGPT 67 U/L (21-72); AST/SGOT 46 U/L (17-59); BLOOD UREA NITROGEN 13 mg/dl (9-20); CALCIUM 8.9 mg/dL (8.4-10.2); GFR NON-AFRICAN AMERICAN > 60
--- NOTE | 2018-03-12 09:16 | CP.CCUPN ---
CCU Subjective - Physician Review Events Since Last Encounter (Free Text): Patient awake, no distress, follow commands, no fever, no SOB, no chest pain, events reviewed CCU Objective - Vital Signs / Intake & Output Vital Signs (Last 4 hours): Vital Signs Pulse Resp BP Pulse Ox 03/12/18 08:32 74 127/92 H 03/12/18 06:00 69 19 129/78 92 L Intake and Output (Last 8hrs): Intake & Output 03/11/18 03/12/18 03/12/18 22:59 06:59 14:59 Intake Total 576 234 Output Total 500 400 Balance 76 -166 Weight 365 lb Intake: IV 476 84 Intake, Piggyback 100 Oral 150 Output: Urine 500 400 Urine, Voided 500 400 Other: # Voids Urine, Voided 150 1 # Bowel Movements 0 - Physical Exam Head: Positive for: Atraumatic, Normocephalic Pupils: Positive for: PERRL Conjunctiva: Positive for: Normal Mouth: Positive for: Moist Mucous Membranes Pharnyx: Positive for: Normal Respiratory/Chest: Positive for: Clear to Auscultation. Negative for: Wheezes, Rales, Rhonchi, Tachypneic Cardiovascular: Positive for: Regular Rate and Rhythm Abdomen: Positive for: Normal Bowel Sounds. Negative for: Tenderness, Distention Upper Extremity: Positive for: Capillary Refill < 2s. Negative for: Edema Lower Extremity: Positive for: Capillary Refill < 2 s. Negative for: Edema, CALF TENDERNESS, Temperature Abnormalties Neurological: Positive for: Speech Normal Skin: Positive for: Normal Color Psychiatric: Positive for: Alert, Oriented x 3 - Medications Active Medications: Active Medications Generic Name Dose Route Start Last Admin Trade Name Daveyq PRN Reason Stop Dose Admin Amlodipine Besylate 5 mg 03/11/18 21:00 03/12/18 08:32 Norvasc PO 5 mg Q12 [facility] Administration Apixaban 5 mg 03/09/18 09:00 03/09/18 10:44 Eliquis PO 5 mg Q12 [facility] Administration Protocol Furosemide 40 mg 03/08/18 17:00 03/08/18 17:31 Lasix IVP 40 mg BID [facility] Administration Amiodarone HCl 450 mg/ Sodium 259 mls @ 34.53 mls/hr 03/11/18 12:45 03/11/18 21:46 Chloride IV 0.5 mg/min .Q7H31M [facility] 17.27 mls/hr Administration Protocol 1 MG/MIN Metoprolol Succinate 50 mg 03/11/18 12:45 03/11/18 23:43 Toprol Xl PO 50 mg Q12 [facility] Administration - Patient Studies Lab Studies: Lab Studies 03/12/18 03/12/18 Range/Units 05:30 05:30 WBC 9.7 (4.8-10.8) K/uL RBC 5.68 (4.40-5.90) Mil/uL Hgb 14.8 (12.0-18.0) g/dL Hct 46.7 (35.0-51.0) % MCV 82.2 (80.0-94.0) fl MCH 26.1 L (27.0-31.0) pg MCHC 31.7 L (33.0-37.0) g/dL RDW 15.1 H (11.5-14.5) % Plt Count 178 (130-400) K/uL MPV 10.2 (7.2-11.7) fl Neut % (Auto) 62.0 (50.0-75.0) % Lymph % (Auto) 20.8 (20.0-40.0) % Mclennan % (Auto) 16.0 H (0.0-10.0) % Eos % (Auto) 0.6 (0.0-4.0) % Baso % (Auto) 0.6 (0.0-2.0) % Neut # (Auto) 6.0 (1.8-7.0) K/uL Lymph # (Auto) 2.0 (1.0-4.3) K/uL Mclennan # (Auto) 1.6 H (0.0-0.8) K/uL Eos # (Auto) 0.1 (0.0-0.7) K/uL Baso # (Auto) 0.1 (0.0-0.2) K/uL Sodium 136 (132-148) mmol/l Potassium 4.2 (3.6-5.0) MMOL/L Chloride 101 (98-107) mmol/L Carbon Dioxide 28 (22-30) mmol/L Anion Gap 11 (10-20) BUN 13 (9-20) mg/dl Creatinine 1.2 (0.8-1.5) mg/dl Est GFR ( Amer) > 60 Est GFR (Non-Af Amer) > 60 Random Glucose 96 (75-110) mg/dL Calcium 8.9 (8.4-10.2) mg/dL Total Bilirubin 2.1 H (0.2-1.3) mg/dl AST 46 (17-59) U/L ALT 67 (21-72) U/L Alkaline Phosphatase 58 (38-126) U/L Total Protein 7.2 (6.3-8.2) G/DL Albumin 3.7 (3.5-5.0) g/dL Globulin 3.5 (2.2-3.9) gm/dL Albumin/Globulin Ratio 1.1 (1.0-2.1) Laboratory Results - last 24 hr 03/12/18 03/12/18 05:30 05:30 WBC 9.7 RBC 5.68 Hgb 14.8 Hct 46.7 MCV 82.2 MCH 26.1 L MCHC 31.7 L RDW 15.1 H Plt Count 178 MPV 10.2 Neut % (Auto) 62.0 Lymph % (Auto) 20.8 Mclennan % (Auto) 16.0 H Eos % (Auto) 0.6 Baso % (Auto) 0.6 Neut # (Auto) 6.0 Lymph # (Auto) 2.0 Mclennan # (Auto) 1.6 H Eos # (Auto) 0.1 Baso # (Auto) 0.1 Sodium 136 Potassium 4.2 Chloride 101 Carbon Dioxide 28 Anion Gap 11 BUN 13 Creatinine 1.2 Est GFR ( Amer) > 60 Est GFR (Non-Af Amer) > 60 Random Glucose 96 Calcium 8.9 Total Bilirubin 2.1 H AST 46 ALT 67 Alkaline Phosphatase 58 Total Protein 7.2 Albumin 3.7 Globulin 3.5 Albumin/Globulin Ratio 1.1 Critical Care Progress Note - Nutrition Nutrition: Nutrition Category Date Time Status Heart Healthy Diet [DIET] Diets 03/12/18 Breakfast Active Assessment/Plan - Assessment and Plan (Free Text) Assessment: A/P Respiratory insufficiency, CHF, A Fib, s/p cardiac cath, HTN, obesity, KOBY - Continue meds - Cardiology follow up - BP control - DVT prophylaxes
[2018-03-12] MEDS: Metoprolol Succinate 50 mg XL Tab PO SCH ×2 (09:29→21:35)
[2018-03-12] MEDS: Amiodarone 450 MG in Sodium Chloride 0.9% 250 ML IV SCH (12:27)
--- NOTE | 2018-03-12 17:19 | CP.PCM.PN ---
Subjective - Date & Time of Evaluation Date of Evaluation: 03/12/18 Time of Evaluation: 17:18 - Subjective Subjective: Patient is doing well. Converted to NSR . Has no chest pain or SOB. Doing well with medications. discussed with Dr shay and will Dc iv amiodarone and switch to po. Objective - Vital Signs/Intake and Output Vital Signs (last 24 hours): Temp Pulse Resp BP Pulse Ox 97.7 F 79 17 122/91 H 97 03/12/18 16:00 03/12/18 16:00 03/12/18 16:00 03/12/18 16:00 03/12/18 16:00 Intake and Output: 03/12/18 03/12/18 06:59 18:59 Intake Total 510 619 Output Total 400 Balance 110 619 - Medications Medications: Current Medications Amlodipine Besylate (Norvasc) 5 mg PO Q12 [facility] Last Admin: 03/12/18 08:32 Dose: 5 mg Apixaban (Eliquis) 5 mg PO Q12 [facility]; Protocol Last Admin: 03/09/18 10:44 Dose: 5 mg Furosemide (Lasix) 40 mg IVP BID [facility] Last Admin: 03/08/18 17:31 Dose: 40 mg Amiodarone HCl 450 mg/ Sodium (Chloride) 259 mls @ 34.53 mls/hr IV .Q7H31M [facility]; Protocol Last Admin: 03/12/18 12:27 Dose: 0.5 mg/min, 17.27 mls/hr Metoprolol Succinate (Toprol Xl) 50 mg PO Q12 [facility] Last Admin: 03/12/18 09:29 Dose: 50 mg - Labs Labs: 03/12/18 05:30 03/12/18 05:30 PT 12.4 Seconds (9.8-13.1) 03/08/18 08:43 INR 1.1 03/08/18 08:43 APTT 32.2 Seconds (25.6-37.1) 03/08/18 08:43 - Head Exam Head Exam: NORMAL INSPECTION - Eye Exam Eye Exam: Normal appearance - Respiratory Exam Respiratory Exam: Clear to Ausculation Bilateral - Cardiovascular Exam Cardiovascular Exam: REGULAR RHYTHM - GI/Abdominal Exam GI & Abdominal Exam: Normal Bowel Sounds Assessment and Plan (1) CHF (congestive heart failure) Status: Acute (2) NICM (nonischemic cardiomyopathy) Status: Acute (3) New onset a-fib Status: Acute - Assessment and Plan (Free Text) Plan: Cont meds po amiodarone cont tx follow up with cardiology regular floor
[2018-03-13] MEDS: Metoprolol Succinate 50 mg XL Tab PO SCH ×2 (09:14→21:30)
--- NOTE | 2018-03-13 18:25 | CP.PCM.PN ---
Subjective - Date & Time of Evaluation Date of Evaluation: 03/13/18 Time of Evaluation: 18:20 - Subjective Subjective: pt doing well. no throat pain. no groin discomfort. no palp or orthopnea. Objective - Vital Signs/Intake and Output Vital Signs (last 24 hours): Temp Pulse Resp BP Pulse Ox 97.9 F 73 18 116/81 95 03/13/18 15:55 03/13/18 15:55 03/13/18 15:55 03/13/18 15:55 03/13/18 15:55 Intake and Output: 03/13/18 03/13/18 06:59 18:59 Output Total 700 Balance -700 - Medications Medications: Current Medications Amiodarone HCl (Cordarone) 400 mg PO DAILY [facility] Last Admin: 03/13/18 09:13 Dose: 400 mg Amlodipine Besylate (Norvasc) 2.5 mg PO Q12 [facility] Apixaban (Eliquis) 5 mg PO Q12 [facility]; Protocol Last Admin: 03/09/18 10:44 Dose: 5 mg Furosemide (Lasix) 40 mg IVP BID [facility] Last Admin: 03/08/18 17:31 Dose: 40 mg Metoprolol Succinate (Toprol Xl) 50 mg PO Q12 [facility] Last Admin: 03/13/18 09:14 Dose: 50 mg Ramipril (Altace) 2.5 mg PO DAILY [facility] - Labs Labs: 03/12/18 05:30 03/12/18 05:30 PT 12.4 Seconds (9.8-13.1) 03/08/18 08:43 INR 1.1 03/08/18 08:43 APTT 32.2 Seconds (25.6-37.1) 03/08/18 08:43 - Constitutional Appears: Well - Head Exam Head Exam: ATRAUMATIC, NORMAL INSPECTION, NORMOCEPHALIC - Eye Exam Eye Exam: EOMI, Normal appearance, PERRL. absent: Conjunctival injection, Nystagmus, Periorbital swelling, Periorbital tenderness, Scleral icterus Pupil Exam: NORMAL ACCOMODATION, PERRL - ENT Exam ENT Exam: Mucous Membranes Moist, Normal Exam. absent: Mucous Membranes Dry, Normal External Ear Exam, Normal Oropharynx, TM's Normal Bilaterally - Neck Exam Neck Exam: Full ROM, Normal Inspection. absent: Lymphadenopathy - Respiratory Exam Respiratory Exam: Clear to Ausculation Bilateral, NORMAL BREATHING PATTERN. absent: Accessory Muscle Use, Chest Wall Tenderness, Decreased Breath Sounds, Prolonged Expiratory Phase, Rales, Rhonchi, Wheezes, Respiratory Distress, Stridor - Cardiovascular Exam Cardiovascular Exam: REGULAR RHYTHM, +S1, +S2, Murmur. absent: Bradycardia, Tachycardia, Clicks, Diastolic murmur, Gallop, Irregular Rhythm, JVD, RRR, Rubs, +S4 - GI/Abdominal Exam GI & Abdominal Exam: Soft, Normal Bowel Sounds. absent: Bruit, Distended, Firm, Guarding, Rigid, Tenderness, Diminished Bowel Sounds, Hernia, Hyperactive Bowel Sounds, Hypoactive Bowel Sounds, Organomegaly, Pulsatile Mass, Rebound, Mass - Rectal Exam Rectal Exam: Deferred - Extremities Exam Extremities Exam: Full ROM, Normal Capillary Refill, Normal Inspection. absent: Calf Tenderness, Joint Swelling, Pedal Edema, Tenderness - Back Exam Back Exam: NORMAL INSPECTION. absent: CVA tenderness (L), CVA tenderness (R), Full ROM, muscle spasm, paraspinal tenderness, rash noted, tenderness, vertebral tenderness - Neurological Exam Neurological Exam: Alert, Awake, CN II-XII Intact, Normal Gait, Oriented x3. absent: Abnormal Gait, Altered, Motor Sensory Deficit, Reflexes Normal - Psychiatric Exam Psychiatric exam: Normal Affect, Normal Mood. absent: Agitated, Anxious, Depressed, Flat Affect, Homicidal Ideation, Manic, Suicidal Ideation - Skin Skin Exam: Dry, Intact, Normal Color, Warm. absent: Abrasion, Cyanosis, Diaphoretic, Erythema, Mottled, Pallor, Pallor, Petechiae, Rash, Urticaria, Vesicles Assessment and Plan (1) CHF (congestive heart failure) Status: Acute (2) NICM (nonischemic cardiomyopathy) Status: Acute (3) Mitral regurgitation Status: Acute (4) LAE (left atrial enlargement) Status: Acute (5) Pericardial effusion Status: Acute (6) New onset a-fib Status: Acute - Assessment and Plan (Free Text) Plan: MAY BE D/C ONCE HE RECEIVES LIFE VEST. WILL ORDER LIMITED ECHO TO RE-EVAL PERICARDIAL EFFUSION WHILE ON ANTICOAG. TREAT CHF MEDICALLY. WILL RE-ECHO IN 3 MONTHS IF EF IMPROVES THEN NO AICD. STARTED LOW DOSE RAMIPRIL. DECREASED DOSE OF NORVASC. NO NEED FOR ANTIPLTS.
[2018-03-13] MEDS ORDERED: Enoxaparin 150 mg Syringe SC ONE (21:00)
[2018-03-13 23:51] VITALS: RESP 20
[2018-03-14 06:30] LABS: BLOOD UREA NITROGEN 13 mg/dl (9-20); CALCIUM 8.9 mg/dL (8.4-10.2); GFR NON-AFRICAN AMERICAN > 60
[2018-03-14 06:35] LABS: B-TYPE NATRIURETIC PEPTIDE 1710 pg/ml (0-900)
--- NOTE | 2018-03-14 08:09 | CP.PCM.PN ---
Subjective - Date & Time of Evaluation Date of Evaluation: 03/13/18 Time of Evaluation: 14:00 - Subjective Subjective: patient is feeling a lot better Has no chest pain or SOB Tolerating amiodarone has no feevr. Objective - Vital Signs/Intake and Output Vital Signs (last 24 hours): Temp Pulse Resp BP Pulse Ox 97.8 F 82 20 129/89 98 03/13/18 23:50 03/13/18 23:50 03/13/18 23:50 03/13/18 23:50 03/13/18 23:50 - Medications Medications: Current Medications Amiodarone HCl (Cordarone) 400 mg PO DAILY [facility] Last Admin: 03/13/18 09:13 Dose: 400 mg Amlodipine Besylate (Norvasc) 2.5 mg PO Q12 [facility] Last Admin: 03/13/18 21:35 Dose: 2.5 mg Apixaban (Eliquis) 5 mg PO Q12 [facility]; Protocol Last Admin: 03/09/18 10:44 Dose: 5 mg Furosemide (Lasix) 40 mg PO DAILY [facility] Metoprolol Succinate (Toprol Xl) 50 mg PO Q12 [facility] Last Admin: 03/13/18 21:30 Dose: 50 mg Ramipril (Altace) 2.5 mg PO DAILY [facility] - Labs Labs: 03/12/18 05:30 03/14/18 05:55 PT 12.4 Seconds (9.8-13.1) 03/08/18 08:43 INR 1.1 03/08/18 08:43 APTT 32.2 Seconds (25.6-37.1) 03/08/18 08:43 - Head Exam Head Exam: NORMAL INSPECTION - Eye Exam Eye Exam: Normal appearance - Respiratory Exam Respiratory Exam: Clear to Ausculation Bilateral - Cardiovascular Exam Cardiovascular Exam: REGULAR RHYTHM - GI/Abdominal Exam GI & Abdominal Exam: Normal Bowel Sounds Assessment and Plan (1) CHF (congestive heart failure) Status: Acute (2) NICM (nonischemic cardiomyopathy) Status: Acute (3) New onset a-fib Status: Acute - Assessment and Plan (Free Text) Plan: Cont meds DC plans for am cont meds.
[2018-03-14 08:15] VITALS: BP 126/84; PULSE 68; TEMP 98; O2SAT 96
[2018-03-14] MEDS: Metoprolol Succinate 50 mg XL Tab PO SCH (09:50)
--- NOTE | 2018-03-14 14:41 | CP.PCM.PCO ---
Assessment/Plan - Assessment/Plan Assessment (Free Text): Pt stable, denies cp or sob, ambulating without distress. Patient seen by Doblet from company that will supply life vest for patient. Per Doblet, pt will not fit in vest due to pt's size. Tech spoke to Dr. Morales and he is aware pt will be fitted as outpatient. Spoke to Dr. Morales, patient to be discharged home just on the oral medications as per med rec. Rx given x 30 day supply. Patient states he does not want the medications to be obtained from our [facility] pharmacy but wants the meds to be faxed to his pharmacy, [facility] in [place]. Patient aware he is to f/u with Dr. Morales on at 10 am and to f/u with Dr. Jones this coming Sunday 03/18. Pt instructed to take all medications as directed and to f/y with MDs as ordered. Patient verbalized understanding. Patient seen and cleared for d/c home by Dr. Jones.
--- NOTE | 2018-03-23 18:06 | PCM.OP ---
Operative Report - Operative Report Date of Surgery/Procedure: 03/14/18 Time of Surgery/Procedure: 13:00 Surgeon: brain shay DO Anesthesia/Sedation: provided by anesthesia dept Pre-Operative Diagnosis: afib Post-Operative Diagnosis: NO LA THROMBUS Indication for Surgery: R/O THROMBUS PRIOR TO CV Operative Findings: NO LA THROMBUS Procedure/Operation Description: ANDRE W D/C CARDIOVERSION Estimated Blood Loss: NONE Complications: NONE Discharge & Condition: STABLE SUCCESSFUL CV TO SR
--- NOTE | 2018-03-25 17:29 | CP.PCM.DIS ---
Provider - Provider Date of Admission: 03/08/18 10:32 Attending physician: Romulo Hale MD Time Spent in preparation of Discharge (in minutes): 30 Diagnosis - Discharge Diagnosis (1) CHF (congestive heart failure) Status: Acute (2) NICM (nonischemic cardiomyopathy) Status: Acute (3) New onset a-fib Status: Acute Hospital Course - Lab Results Lab Results: Micro Results 03/12/18 07:15 Naris MRSA Culture (Admit) - Final MRSA NOT DETECTED 03/08/18 15:20 Nose MRSA Culture (Admit) - Final MRSA NOT DETECTED Most Recent Lab Values WBC 9.7 K/uL (4.8-10.8) 03/12/18 05:30 RBC 5.68 Mil/uL (4.40-5.90) 03/12/18 05:30 Hgb 14.8 g/dL (12.0-18.0) 03/12/18 05:30 Hct 46.7 % (35.0-51.0) 03/12/18 05:30 MCV 82.2 fl (80.0-94.0) 03/12/18 05:30 MCH 26.1 pg (27.0-31.0) L 03/12/18 05:30 MCHC 31.7 g/dL (33.0-37.0) L 03/12/18 05:30 RDW 15.1 % (11.5-14.5) H 03/12/18 05:30 Plt Count 178 K/uL (130-400) 03/12/18 05:30 MPV 10.2 fl (7.2-11.7) 03/12/18 05:30 Neut % (Auto) 62.0 % (50.0-75.0) 03/12/18 05:30 Lymph % (Auto) 20.8 % (20.0-40.0) 03/12/18 05:30 [place] % (Auto) 16.0 % (0.0-10.0) H 03/12/18 05:30 Eos % (Auto) 0.6 % (0.0-4.0) 03/12/18 05:30 Baso % (Auto) 0.6 % (0.0-2.0) 03/12/18 05:30 Neut # (Auto) 6.0 K/uL (1.8-7.0) 03/12/18 05:30 Lymph # (Auto) 2.0 K/uL (1.0-4.3) 03/12/18 05:30 [place] # (Auto) 1.6 K/uL (0.0-0.8) H 03/12/18 05:30 Eos # (Auto) 0.1 K/uL (0.0-0.7) 03/12/18 05:30 Baso # (Auto) 0.1 K/uL (0.0-0.2) 03/12/18 05:30 PT 12.4 Seconds (9.8-13.1) 03/08/18 08:43 INR 1.1 03/08/18 08:43 APTT 32.2 Seconds (25.6-37.1) 03/08/18 08:43 Sodium 137 mmol/l (132-148) 03/14/18 05:55 Potassium 4.3 MMOL/L (3.6-5.0) 03/14/18 05:55 Chloride 104 mmol/L (98-107) 03/14/18 05:55 Carbon Dioxide 28 mmol/L (22-30) 03/14/18 05:55 Anion Gap 9 (10-20) L 03/14/18 05:55 BUN 13 mg/dl (9-20) 03/14/18 05:55 Creatinine 1.2 mg/dl (0.8-1.5) 03/14/18 05:55 Est GFR ( Amer) > 60 03/14/18 05:55 Est GFR (Non-Af Amer) > 60 03/14/18 05:55 Random Glucose 97 mg/dL (75-110) 03/14/18 05:55 Calcium 8.9 mg/dL (8.4-10.2) 03/14/18 05:55 Magnesium 2.2 MG/DL (1.6-2.3) 03/14/18 05:55 Total Bilirubin 2.1 mg/dl (0.2-1.3) H 03/12/18 05:30 AST 46 U/L (17-59) 03/12/18 05:30 ALT 67 U/L (21-72) 03/12/18 05:30 Alkaline Phosphatase 58 U/L (38-126) 03/12/18 05:30 Troponin I 0.0240 ng/mL (0.00-0.120) 03/08/18 21:14 NT-Pro-B Natriuret Pep 1710 pg/ml (0-900) H 03/14/18 05:55 Total Protein 7.2 G/DL (6.3-8.2) 03/12/18 05:30 Albumin 3.7 g/dL (3.5-5.0) 03/12/18 05:30 Globulin 3.5 gm/dL (2.2-3.9) 03/12/18 05:30 Albumin/Globulin Ratio 1.1 (1.0-2.1) 03/12/18 05:30 TSH 3rd Generation 1.54 mIU/ML (0.46-4.68) 03/08/18 08:43 Urine Opiates Screen Negative (NEGATIVE) 03/08/18 18:56 Urine Methadone Screen Negative (NEGATIVE) 03/08/18 18:56 Ur Barbiturates Screen Negative (NEGATIVE) 03/08/18 18:56 Ur Phencyclidine Scrn Negative (NEGATIVE) 03/08/18 18:56 Ur Amphetamines Screen Negative (NEGATIVE) 03/08/18 18:56 U Benzodiazepines Scrn Negative (NEGATIVE) 03/08/18 18:56 U Oth Cocaine Metabols Negative (NEGATIVE) 03/08/18 18:56 U Cannabinoids Screen Negative (NEGATIVE) 03/08/18 18:56 - Hospital Course Hospital Course: This is a 58 y/o male admitted for new onset atrial fibrillation. He was noted to have cardiomyopathy. He was admitted to ICU and Dr Shay was called for cardiology eval. He responded very well to treatment. He was placed on Amiodarone and started on phys therapy. he remained well he was prescribed life vest but was not available, he was discharged in stable condition and advised follow up with Dr shay for further cardiac eval. Discharge Exam - Head Exam Head Exam: NORMAL INSPECTION - Eye Exam Eye Exam: Normal appearance - Respiratory Exam Respiratory Exam: NORMAL BREATHING PATTERN - Cardiovascular Exam Cardiovascular Exam: REGULAR RHYTHM - GI/Abdominal Exam GI & Abdominal Exam: Normal Bowel Sounds Discharge Plan - Discharge Medications Prescriptions: Ramipril [Altace] 2.5 mg PO DAILY #30 cap Amiodarone [Cordarone] 400 mg PO DAILY #30 tab Apixaban [Eliquis] 5 mg PO Q12 #60 tab Furosemide [Lasix] 40 mg PO DAILY #30 tab amLODIPine [Norvasc] 2.5 mg PO Q12 #60 tab Metoprolol Succinate XL [Toprol XL] 50 mg PO Q12 #60 tab - Follow Up Plan Condition: FAIR Disposition: HOME/ ROUTINE Instructions: Heart Failure, Adult (DC), Heart Failure and Atrial Fibrillation Additional Instructions: follow up with primary MD [address] Shay on April [address] Kelli Shay [address] [place] [address] [address] [place] [address] Referrals: Dwight Jones MD [Staff Provider] - Kelli Shay MD [Staff Provider] -
--- NOTE | 2018-03-25 17:34 | CP.PCM.PN ---
Subjective - Date & Time of Evaluation Date of Evaluation: 03/09/18 Time of Evaluation: 10:35 - Subjective Subjective: patient feels a lot better stilll has episodes of SOB Has no chest pain Objective - Vital Signs/Intake and Output Vital Signs (last 24 hours): Temp Pulse Resp BP Pulse Ox 98.0 F 68 20 126/84 96 03/14/18 08:14 03/14/18 09:50 03/14/18 08:14 03/14/18 09:50 03/14/18 08:14 - Labs Labs: 03/12/18 05:30 03/14/18 05:55 PT 12.4 Seconds (9.8-13.1) 03/08/18 08:43 INR 1.1 03/08/18 08:43 APTT 32.2 Seconds (25.6-37.1) 03/08/18 08:43 - Head Exam Head Exam: NORMAL INSPECTION - Eye Exam Eye Exam: Normal appearance - ENT Exam ENT Exam: Mucous Membranes Moist - Respiratory Exam Respiratory Exam: Decreased Breath Sounds - Cardiovascular Exam Cardiovascular Exam: Irregular Rhythm - GI/Abdominal Exam GI & Abdominal Exam: Soft, Normal Bowel Sounds Assessment and Plan (1) CHF (congestive heart failure) Status: Acute (2) NICM (nonischemic cardiomyopathy) Status: Acute (3) New onset a-fib Status: Acute - Assessment and Plan (Free Text) Plan: Cont meds Cont txx Cont meds start phys therapy
--- NOTE | 2018-03-25 17:35 | CP.PCM.PN ---
Subjective - Date & Time of Evaluation Date of Evaluation: 03/10/18 Time of Evaluation: 10:35 - Subjective Subjective: patient remains stable Has no chest pain Has slight SOB afebrile Objective - Vital Signs/Intake and Output Vital Signs (last 24 hours): Temp Pulse Resp BP Pulse Ox 98.0 F 68 20 126/84 96 03/14/18 08:14 03/14/18 09:50 03/14/18 08:14 03/14/18 09:50 03/14/18 08:14 - Labs Labs: 03/12/18 05:30 03/14/18 05:55 PT 12.4 Seconds (9.8-13.1) 03/08/18 08:43 INR 1.1 03/08/18 08:43 APTT 32.2 Seconds (25.6-37.1) 03/08/18 08:43 - Head Exam Head Exam: NORMAL INSPECTION - Eye Exam Eye Exam: Normal appearance - Respiratory Exam Respiratory Exam: Clear to Ausculation Bilateral - Cardiovascular Exam Cardiovascular Exam: Irregular Rhythm - GI/Abdominal Exam GI & Abdominal Exam: Normal Bowel Sounds Assessment and Plan (1) CHF (congestive heart failure) Status: Acute (2) NICM (nonischemic cardiomyopathy) Status: Acute (3) New onset a-fib Status: Acute - Assessment and Plan (Free Text) Plan: Cont meds Cont tx Cont PT start phys therapy discussedwith Gomez
== END 2018-03-14 15:40 | disposition home or self-care (01) | DRG 192 ==
LOC: H.ER 07:58 → H.ERHOLD 10:32 → H.ICU/CCU 12:33 → H.MEDSURG1 03-12 20:30
PROVIDERS: ADMIT Family Medicine; ATTEND Family Medicine
PROC: 4A023N7 Measurement of Cardiac Sampling and Pressure, Left Heart, Percutaneous Approach (ICD-10-PCS; principal; 2018-03-10)
PROC: B206YZZ Plain Radiography of Right and Left Heart using Other Contrast (ICD-10-PCS; 2018-03-10)
PROC: B246ZZ4 Ultrasonography of Right and Left Heart, Transesophageal (ICD-10-PCS; 2018-03-11)
PROC: 5A2204Z Restoration of Cardiac Rhythm, Single (ICD-10-PCS; 2018-03-11)
DX: I42.0 Dilated cardiomyopathy (principal); I50.41 Acute combined systolic (congestive) and diastolic (congestive) heart failure; I48.91 Unspecified atrial fibrillation; I95.89 Other hypotension; Z68.41 Body mass index [BMI] 40.0-44.9, adult; I31.3 Pericardial effusion (noninflammatory); E66.01 Morbid (severe) obesity due to excess calories; I34.0 Nonrheumatic mitral (valve) insufficiency; G47.33 Obstructive sleep apnea (adult) (pediatric); E78.00 Pure hypercholesterolemia, unspecified; Z87.891 Personal history of nicotine dependence; Z71.3 Dietary counseling and surveillance